=== PATIENT | female | born 1960 | race Caucasian/White ===

== ENCOUNTER 2018-01-11 05:13 | Observation (INO) | payer BC ==
[2018-01-11 09:43] LABS: Basophils # (A) 0.1 k/uL (0-0.2); Basophils % (A) 1 %; Eosinophils # (A) 0.4 k/uL (0-0.7); Eosinophils % (A) 5 %; HCT 34.8 % (34.0-46.0); HGB 11.4 gm/dL (11.4-16.0); Lymphocytes % (A) 30 %; MCH 28.8 pg (25.0-35.0); MCHC 32.9 g/dL (31.0-37.0); MCV 87.4 fL (80.0-100.0); Monocytes # (A) 0.4 k/uL (0-1.0); Monocytes % (A) 6 %; Neutrophils # (A) 3.7 k/uL (1.3-7.7); Neutrophils % (A) 56 %; Platelet Count 156 k/uL (150-450); RBC 3.98 m/uL (3.80-5.40); RDW 13.8 % (11.5-15.5); WBC 6.7 k/uL (3.8-10.6)
[2018-01-11 10:07] LABS: Calcium 9.2 mg/dL (8.4-10.2)
--- NOTE | 2018-01-11 11:47 | ECHOF ---
Referral Reason:Chest Pain MEASUREMENTS -------- HEIGHT: 172.7 cm WEIGHT: 164.7 kg BP: 119/69 RVIDd: 3.4 cm (< 3.3) IVSd: 1.1 cm (0.6 - 1.1) LVIDd: 5.1 cm (3.9 - 5.3) LVPWd: 1.1 cm (0.6 - 1.1) IVSs: 1.4 cm LVIDs: 2.8 cm LVPWs: 1.5 cm LAESV Index (A-L): 12.96 ml/m Ao Diam: 3.1 cm (2.0 - 3.7) AV Cusp: 2.3 cm (1.5 - 2.6) LA Diam: 3.5 cm (2.7 - 3.8) MV E Angel: 0.92 m/s MV DecT: 285 ms MV A Angel: 1.11 m/s MV E/A Ratio: 0.83 RAP: 5.00 mmHg RVSP: 33.67 mmHg FINDINGS -------- Sinus rhythm. This was a technically difficult study with suboptimal views. The left ventricular size is normal. There is borderline concentric left ventricular hypertrophy. Overall left ventricular systolic function is normal with, an EF between 55 - 60 %. The right ventricle is mildly enlarged. Normal LA size by volume 22+/-6 ml/m2. The right atrium is normal in size. 3 ml of Lumason was utilized for enhancement of images. There is mild aortic valve sclerosis. There is no evidence of aortic regurgitation. There is no e vidence of aortic stenosis. The mitral valve leaflets are mildly thickened. Mild mitral regurgitation is present. Trace tricuspid regurgitation present. The right ventricular systolic pressure, as measured by Dopp ler, is 33.67mmHg. Trace/mild (physiologic) pulmonic regurgitation. The aortic root size is normal. IVC Not well visulized. There is no pericardial effusion. CONCLUSIONS -------- 1. Sinus rhythm. 2. This was a technically difficult study with suboptimal views. 3. The left ventricular size is normal. 4. There is borderline concentric left ventricular hypertrophy. 5. Overall left ventricular systolic function is normal with, an EF between 55 - 60 %. 6. The right ventricle is mildly enlarged. 7. Normal LA size by volume 22+/-6 ml/m2. 8. 3 ml of Lumason was utilized for enhancement of images. 9. There is mild aortic valve sclerosis. 10. The mitral valve leaflets are mildly thickened. 11. Mild mitral regurgitation is present. 12. Trace tricuspid regurgitation present. 13. The right ventricular systolic pressure, as measured by Doppler, is 33.67mmHg. 14. Trace/mild (physiologic) pulmonic regurgitation. 15. The aortic root size is normal. 16. IVC Not well visulized. 17. There is no pericardial effusion. DRY WALL SPRAYER: Mike Cornelius RDCS
--- NOTE | 2018-01-11 14:20 | P.HPIM ---
History of Present Illness Patient is a pleasant a 57-year-old female morbidly obese history of sleep apnea woke up from sleep having chest pain in the whole lites left side of the chest burning in nature severe, nonexertional not associated with food not associated with the deep breathing lasted for 2 hours, was seen in [place] [facility] had an EKG which was normal without any ST-T wave changes sinus rhythm normal troponin subsequently transferred here cardiology was consulted patient will undergo stress us tomorrow if that is negative patient discharged tomorrow patient denied any cough was complaining of some lightheadedness denied any nausea associated chest pain. No other aggravating or relieving factors. Review of Systems REVIEW OF SYSTEMS: CONSTITUTIONAL: No fever, no malaise, no fatigue. HEENT: No recent visual problems or hearing problems. Denied any sore throat. CARDIOVASCULAR: No orthopnea, PND, no palpitations, no syncope. PULMONARY: No shortness of breath, no cough, no hemoptysis. GASTROINTESTINAL: No diarrhea, no nausea, no vomiting, no abdominal pain. Normoactive bowel sounds. NEUROLOGICAL: No headaches, no weakness, no numbness. HEMATOLOGICAL: Denies any bleeding or petechiae. GENITOURINARY: Denies any burning micturition, frequency, or urgency. MUSCULOSKELETAL/RHEUMATOLOGICAL: Denies any joint pain, swelling, or any muscle pain. ENDOCRINE: Denies any polyuria or polydipsia. The rest of the 14-point review of systems is negative. Past Medical History Past Medical History: Heart Failure, Diabetes Mellitus Additional Past Medical History / Comment(s): Pt states she is not hypertensive nor does she have elevated lipids-she takes meds for these as a preventative d/ t hx of diabetes. 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 History of Any Multi-Drug Resistant Organisms: None Reported Past Surgical History: Cholecystectomy, Hysterectomy, Orthopedic Surgery Additional Past Surgical History / Comment(s): Bilateral varicose vein surgeries , LR ankle and knee arthroscopies. Past Anesthesia/Blood Transfusion Reactions: No Reported Reaction Smoking Status: Former smoker - Past Family History Mother Family Medical History: Cancer, COPD Additional Family Medical History / Comment(s): Mother is 87yrs old and is a lung cancer stage IV survivor. Father Family Medical History: CVA/TIA, Hypertension Additional Family Medical History / Comment(s): Father had a pacemaker. He at the age of 70yrs-pt unsure of what cause of was. Medications and Allergies Home Medications Medication Instructions Recorded Confirmed Type Atorvastatin [Lipitor] 40 mg PO HS 01/11/18 01/11/18 History Bumetanide [Bumex] 1 mg PO DAILY 01/11/18 01/11/18 History Celecoxib [CeleBREX] 100 mg PO BID 01/11/18 01/11/18 History Furosemide [Lasix] 40 mg PO DAILY 01/11/18 01/11/18 History Gabapentin 600 mg PO BID 01/11/18 01/11/18 History Lisinopril-Hctz 20-12.5 mg 1 tab PO BID 01/11/18 01/11/18 History [Zestoretic 20-12.5] Potassium Chloride ER [K-Dur 10] 10 meq PO DAILY 01/11/18 01/11/18 History glipiZIDE [Glucotrol] 10 mg PO Q12H 01/11/18 01/11/18 History metFORMIN HCL [metFORMIN HCL ER] 1,000 mg PO BID 01/11/18 01/11/18 History oxyCODONE HCL [Roxicodone] 5 mg PO HS PRN 01/11/18 01/11/18 History Allergies Allergy/AdvReac Type Severity Reaction Status Date / Time codeine AdvReac Confusion Verified 01/11/18 09:40 Physical Exam Vitals: Vital Signs Temp Pulse Resp BP Pulse Ox 01/11/18 11:51 98.9 F 83 16 132/75 100 01/11/18 08:12 98.3 F 79 16 119/69 99 Intake and Output 01/10/18 01/11/18 01/11/18 22:59 06:59 14:59 Intake Total 200 Balance 200 Intake: Oral 200 Other: # Voids 2 Weight 164.7 kg PHYSICAL EXAMINATION: GENERAL: The patient is alert and oriented x3, not in any acute distress. Morbidly obese HEENT: Pupils are round and equally reacting to light. EOMI. No scleral icterus. No conjunctival pallor. Normocephalic, atraumatic. No pharyngeal erythema. No thyromegaly. CARDIOVASCULAR: S1 and S2 present. No murmurs, rubs, or gallops. PULMONARY: Chest is clear to auscultation, no wheezing or crackles. ABDOMEN: Soft, nontender, nondistended, normoactive bowel sounds. No palpable organomegaly. MUSCULOSKELETAL: No joint swelling or deformity. EXTREMITIES: No cyanosis, clubbing, or pedal edema. NEUROLOGICAL: Gross neurological examination did not reveal any focal deficits. SKIN: No rashes. Results CBC & Chem 7: 01/11/18 09:03 01/11/18 09:03 Labs: Abnormal Lab Results - Last 24 Hours (Table) 01/11/18 Range/Units 09:03 Sodium 136 L (137-145) mmol/L Chloride 97 L (98-107) mmol/L BUN 36 H (7-17) mg/dL Glucose 134 H (74-99) mg/dL Thrombosis Risk Factor Assmnt - Choose All That Apply Any of the Below Risk Factors Present?: Yes Each Factor Represents 1 point: Age 41-60 years, Obesity (BMI >25) Other Risk Factors: No Other congenital or acquired thrombophilia - If yes, enter type in comment: No Thrombosis Risk Factor Assessment Total Risk Factor Score: 2 Thrombosis Risk Factor Assessment Level: Low Risk Assessment and Plan Plan: -Chest pain: Atypical on sugars of the exact etiology May be musculoskeletal in nature rule out acute coronary syndromes after which patient will undergo stress test if that's negative patient will be discharged tomorrow. Although patient was told she may have heart failure clinically patient does not appear to have any heart failure [facility] is not nursery and this will be held patient has history of some peripheral edema probably from her obesity and venous stasis -Hypertension: Lisinopril hydrochlorothiazide will be resumed next and-that was metastatic diabetic peripheral neuropathy patient will be resumed on her home medications except for metformin patient will be started on sliding scale insulin and monitor her blood sugars -Diabetic peripheral neuropathy continue gabapentin T -Hyperlipidemia continue with Lipitor -Morbid obesity with sleep apnea continue CPAP machine which she does use regularly at home dietary counseling was provided
--- NOTE | 2018-01-11 15:50 | P.CRDCN ---
History of Present Illness History of present illness: Mrs. Cummings is a pleasant 57-year-old female past medical history significant for hypertension, dyslipidemia, diabetes mellitus and morbid obesity. She states her PCP recently took an echo approximately 1-year ago and told her she had the beginning stages of heart failure. She denies coronary artery disease and has never seen a cookie mixer helper for any reason. We have been asked to see her in consultation for chest pain. She states she woke up in the middle of the night with a heavy sensation in the left precoridal region. She attempted to go back to sleep but was unable to due to the pain. The pain then started moving down her left arm which prompted her to go to ED. she denies associated shortness of breath, dizziness, palpitations, nausea, vomiting or diaphoresis. She also denies PND or orthopnea. Her pain lasted approximately 2.5 hours until she arrived in ED and was given aspirin. EKG on admission to [place] revealed sinus mechanism with no acute ST or T-wave abnormalities. Chest xray obtained there negative for an acute cardiopulmonary process. She was then transferred here for further evaluation. Upon arrival repeat EKG again showed normal sinus mechanism with no acute ST or T-wave abnormalities. Echocardiogram obtained reveals preserved left ventricular systolic function with ejection fraction 55-60%, concentric left ventricular hypertrophy with mild MR. Laboratory data reviewed, hemoglobin 11.4, platelets 156, sodium 136, potassium 4.0, creatinine 1.0, NT proBNP 36 and cardiac enzymes negative 1. Current home medications include Bumex 1 mg daily, Lasix 40 mg daily, lisinopril /HCTZ 20/12.5 mg twice a day, potassium supplementation, glipizide, metformin, oxycodone, gabapentin and Celebrex. Review of Systems At the time of my exam: CONSTITUTIONAL: Denies fever. Denies chills. EYES: Denies blurred vision. Denies vision changes. Denies eye pain. EARS, NOSE, MOUTH & THROAT: Denies headache. Denies sore throat. Denies ear pain. CARDIOVASCULAR: Denies chest pain. Denies shortness of breath. Denies orthopnea. Denies PND. Denies palpitations. RESPIRATORY: Denies cough. GASTROINTESTINAL: Denies abdominal pain. Denies diarrhea. Denies constipation. Denies nausea. Denies vomiting. MUSCULOSKELETAL: Denies myalgias. INTEGUMENTARY: Denies pruitis. Denies rash. NEUROLOGIC: Denies numbness. Denies tingling. Denies weakness. PSYCHIATRIC: Denies anxiety. Denies depression. ENDOCRINE: Denies fatigue. Denies weight change. Denies polydipsia. Denies polyurina. GENITOURINARY: Denies burning, hematuria or urgency with micturation. HEMATOLOGIC: Denies history of anemia. Denies bleeding. Past Medical History Past Medical History: Heart Failure, Diabetes Mellitus Additional Past Medical History / Comment(s): Pt states she is not hypertensive nor does she have elevated lipids-she takes meds for these as a preventative d/ t hx of diabetes. 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 History of Any Multi-Drug Resistant Organisms: None Reported Past Surgical History: Cholecystectomy, Hysterectomy, Orthopedic Surgery Additional Past Surgical History / Comment(s): Bilateral varicose vein surgeries , LR ankle and knee arthroscopies. Past Anesthesia/Blood Transfusion Reactions: No Reported Reaction Smoking Status: Former smoker - Past Family History Mother Family Medical History: Cancer, COPD Additional Family Medical History / Comment(s): Mother is 87yrs old and is a lung cancer stage IV survivor. Father Family Medical History: CVA/TIA, Hypertension Additional Family Medical History / Comment(s): Father had a pacemaker. He at the age of 70yrs-pt unsure of what cause of was. Medications and Allergies Home Medications Medication Instructions Recorded Confirmed Type Atorvastatin [Lipitor] 40 mg PO HS 01/11/18 01/11/18 History Bumetanide [Bumex] 1 mg PO DAILY 01/11/18 01/11/18 History Celecoxib [CeleBREX] 100 mg PO BID 01/11/18 01/11/18 History Furosemide [Lasix] 40 mg PO DAILY 01/11/18 01/11/18 History Gabapentin 600 mg PO BID 01/11/18 01/11/18 History Lisinopril-Hctz 20-12.5 mg 1 tab PO BID 01/11/18 01/11/18 History [Zestoretic 20-12.5] Potassium Chloride ER [K-Dur 10] 10 meq PO DAILY 01/11/18 01/11/18 History glipiZIDE [Glucotrol] 10 mg PO Q12H 01/11/18 01/11/18 History metFORMIN HCL [metFORMIN HCL ER] 1,000 mg PO BID 01/11/18 01/11/18 History oxyCODONE HCL [Roxicodone] 5 mg PO HS PRN 01/11/18 01/11/18 History Allergies Allergy/AdvReac Type Severity Reaction Status Date / Time codeine AdvReac Confusion Verified 01/11/18 09:40 Physical Exam Vitals: Vital Signs Temp Pulse Resp BP Pulse Ox 01/11/18 11:51 98.9 F 83 16 132/75 100 01/11/18 08:12 98.3 F 79 16 119/69 99 Intake and Output 01/11/18 01/11/18 01/11/18 06:59 14:59 22:59 Intake Total 200 Balance 200 Intake: Oral 200 Other: # Voids 2 Weight 164.7 kg Blood pressure 119/72 heart rate 80 afebrile maintaining oxygen saturation on 2 L nasal cannula GENERAL: This is a 57-year-old occasion female in no apparent distress at the time of my examination. Morbidly obese. HEENT: Head is atraumatic, normocephalic. Pupils are equal, round. Sclerae anicteric. Conjunctivae are clear. Mucous membranes of the mouth are moist. Neck is supple. There is no jugular venous distention. No carotid bruit is heard. LUNGS: Clear to auscultation no wheezes, rales or rhonchi. No chest wall tenderness is noted on palpation or with deep breathing. Diminished bilaterally. HEART: Regular rate and rhythm without murmurs, rubs or gallops. S1 and S2 heard. ABDOMEN: Soft, nontender. Bowel sounds are heard. No organomegaly noted. EXTREMITIES: Trace bilateral lower extremity edema and no calf tenderness noted. VASCULAR: Radial and dorsalis pedis pulses palpated, no evidence of clubbing. NEUROLOGIC: Patient is awake, alert and oriented x3. Results 01/11/18 09:03 01/11/18 09:03 Cardiac Enzymes 01/11/18 Range/Units 09:03 Troponin I <0.012 (0.000-0.034) ng/mL CBC 01/11/18 Range/Units 09:03 WBC 6.7 (3.8-10.6) k/uL RBC 3.98 (3.80-5.40) m/uL Hgb 11.4 (11.4-16.0) gm/dL Hct 34.8 (34.0-46.0) % Plt Count 156 (150-450) k/uL Comprehensive Metabolic Panel 01/11/18 Range/Units 09:03 Sodium 136 L (137-145) mmol/L Potassium 4.0 (3.5-5.1) mmol/L Chloride 97 L (98-107) mmol/L Carbon Dioxide 28 (22-30) mmol/L BUN 36 H (7-17) mg/dL Creatinine 1.00 (0.52-1.04) mg/dL Glucose 134 H (74-99) mg/dL Calcium 9.2 (8.4-10.2) mg/dL Current Medications Generic Name Dose Route Start Last Admin Trade Name Freq PRN Reason Stop Dose Admin Atorvastatin Calcium 40 mg 01/11/18 21:00 Lipitor PO HS JONN Gabapentin 600 mg 01/11/18 21:00 Neurontin PO BID JONN Glipizide 10 mg 01/11/18 13:45 Glucotrol PO Q12HR JONN Lisinopril/HCTZ 1 each 01/11/18 21:00 Zestoretic 20-12.5 PO BID JONN Intake and Output 01/11/18 01/11/18 01/11/18 06:59 14:59 22:59 Intake Total 200 Balance 200 Intake: Oral 200 Other: # Voids 2 Weight 164.7 kg Patient Weight 01/12/18 06:59 Weight 164.7 kg 01/11/18 09:03 01/11/18 09:03 Assessment and Plan Assessment: ASSESSMENT Chest pain at rest, atypical. Hypertension Dyslipidemia Diabetes mellitus Morbid obesity, BMI 55.2 PLAN There is no evidence of heart failure. Echo is normal, normal NTproBNP, normal chest xray and no symptoms suggestive of heart failure. Continue to obtain serial cardiac enzymes to rule out an acute event. If enzymes are normal we will schedule her for a dobutamine stress echocardiogram tomorrow morning. Resume atorvastatin 40 mg daily and zestoretic 20/12.5 mg BID. Further recommendations to follow based on clinical course. Thank you kindly for this consultation. Nurse Practitioner note has been reviewed, I agree with a documented findings and plan of care. Patient was seen and examined.
[2018-01-11 17:17] LABS: Glucose,Whole Blood 102 mg/dL (75-99)
[2018-01-11 17:57] LABS: Creatine Kinase MB 1.7 ng/mL (0.0-2.4); Troponin I <0.012 ng/mL (0.000-0.034)
[2018-01-11] MEDS: glipiZIDE 10 MG TAB PO SCH ×2 (18:54→20:03)
[2018-01-11] MEDS ORDERED: ACETAMINOPHEN TAB 325 MG TAB PO PRN (19:59)
[2018-01-11] MEDS: LISINOPRIL-HCTZ 20-12.5 MG 1 EACH TAB PO SCH (20:03)
[2018-01-11] MEDS: GABAPENTIN 300 MG CAP PO SCH (20:03)
[2018-01-11 20:24] LABS: Glucose,Whole Blood 168 mg/dL (75-99)
[2018-01-11] MEDS ORDERED: ATORVASTATIN 40 MG TAB PO SCH (21:00)
[2018-01-12 06:49] LABS: Glucose,Whole Blood 164 mg/dL (75-99)
[2018-01-12] MEDS ORDERED: DOBUTamine DRIP for NUC MED 500 MG in DEXTROSE/WATER 1 250ML.BAG IV ONE (07:11)
--- NOTE | 2018-01-12 07:35 | PN ---
PROGRESS NOTE Mrs. Cummings is a 57-year-old female with known history of hypertension, diabetes, hyperlipidemia, who presented with symptoms of chest discomfort. She is feeling well this morning. She denies any chest pain. Her breathing has been stable. She denies any dizziness or palpitation. She continues to be at this time on Lipitor 40 mg daily, glipizide, lisinopril. PHYSICAL EXAMINATION: Blood pressure 100/59 with the heart rate in the 80s. LUNGS: Clear. HEART: Regular rate and rhythm, S1, S2. No S3. No rub. ABDOMEN: Soft, nontender. Positive bowel sounds. EXTREMITIES: No edema. LAB DATA: Lab data revealed a troponin less than 0.012, NT proBNP of 36. IMPRESSION: 1. Chest discomfort has atypical features for ischemic heart disease. 2. History of hypertension. 3. Hyperlipidemia. 4. Diabetes mellitus. RECOMMENDATION: I would recommend to proceed with a dobutamine stress echocardiogram to evaluate the etiology of her symptoms and guide her treatment. The rationale behind the procedure its risks and as well as the plan were discussed with the patient who is in full understanding and agreement. MMODL / IJN: [id number] /
[2018-01-12] MEDS ORDERED: ASPIRIN 81 MG PO SCH (09:00)
[2018-01-12] MEDS: GABAPENTIN 300 MG CAP PO SCH (12:18)
[2018-01-12 12:20] LABS: Glucose,Whole Blood 124 mg/dL (75-99)
--- NOTE | 2018-01-12 14:11 | ECHOS ---
STRESS ECHOCARDIOGRAM DATE OF SERVICE: 01/12/2018 INDICATIONS: Chest pain, shortness of breath. MEDICATIONS: BASELINE HEART RATE: 78 BASELINE BLOOD PRESSURE: 162/63 MAXIMUM HEART RATE: 140 MAXIMUM BLOOD PRESSURE: 216/104 85% MPHR: 137 100% MPHR: 161 METS: MAXIMUM STAGE REACHED: TOTAL EXERCISE TIME: CLINICAL INFORMATION: Baseline rhythm is sinus mechanism, rate of 78, normal axis and intervals, minor nonspecific ST-T wave changes. Baseline blood pressure 162/63 mmHg. Patient received an infusion of dobutamine per protocol. Peak rate 140 beats per minute, which is equal to 87% maximum predicted heart rate. Peak blood pressure 216/104 mmHg. Electrocardiograph monitoring revealed no evidence of diagnostic ischemic ST deviation. Baseline echocardiogram revealed normal wall thickening and motion. At peak exercise, there was normal wall motion augmentation with no hypokinesis or dyskinesis. CONCLUSION: 1. Normal electrocardiograph response to dobutamine infusion. 2. Normal stress echocardiogram with no evidence of stress induced ischemia. MMODL / IJN: [id number] /
[2018-01-12] MEDS: LISINOPRIL-HCTZ 20-12.5 MG 1 EACH TAB PO SCH (14:26)
[2018-01-12] MEDS: glipiZIDE 10 MG TAB PO SCH (14:30)
[2018-01-12 15:46] VITALS: BP 123/74; PULSE 84; RESP 18; TEMP 98.5
[2018-01-12 17:31] LABS: Glucose,Whole Blood 120 mg/dL (75-99)
--- NOTE | 2018-01-13 00:29 | DS ---
DISCHARGE SUMMARY FINAL DIAGNOSES: 1. Chest pain possibly musculoskeletal with negative for dobutamine stress echo. 2. Hypertension. 3. Diabetic neuropathy. 4. Hyperlipidemia. 5. Morbid obesity. DISCHARGE DISPOSITION: The patient is being discharged in stable condition with guarded prognosis. HOSPITAL COURSE: This 57-year-old woman with a past medical problems, admitted with chest pain, myocardial infarction ruled out. Cardiology saw the patient and recommend dobutamine stress echo which is normal. Otherwise, the patient improved significantly. On exam, vital signs are stable. Cardiovascular S1, S2. Abdomen soft. Nervous system: No focal deficits. DISCHARGE ADVICE AND MEDICATIONS: 1. Discharge diet is cardiac diet. 2. Activity limited until follow up. 3. Followup with the patient's primary physician in [place] in 2-3 days. 4. Follow up with cardiology as recommended. MEDICATIONS: 1. Lipitor 40 mg q.h.s. 2. Celebrex 100 mg p.o. b.i.d. 3. Lasix 40 mg daily. 4. Gabapentin 600 mg p.o. b.i.d. 5. Glipizide 10 mg every 24 hours. 6. Metformin 1000 mg b.i.d. 7. Oxycodone 5 mg q.h.s. 8. K-Dur 10 mEq p.o. daily. MMODL / IJN: [id number] /
== END 2018-01-12 18:24 | disposition home or self-care (01) ==
LOC: 3OBS 07:41
PROVIDERS: ADMIT Internal Medicine; ATTEND Internal Medicine
DX: R07.89 Other chest pain (principal); I11.0 Hypertensive heart disease with heart failure; I50.9 Heart failure, unspecified; E11.42 Type 2 diabetes mellitus with diabetic polyneuropathy; E78.5 Hyperlipidemia, unspecified; G47.30 Sleep apnea, unspecified; Z99.89 Dependence on other enabling machines and devices; G89.29 Other chronic pain; M25.50 Pain in unspecified joint; R42 Dizziness and giddiness; E66.01 Morbid (severe) obesity due to excess calories; Z68.43 Body mass index [BMI] 50.0-59.9, adult; Z79.84 Long term (current) use of oral hypoglycemic drugs; Z79.899 Other long term (current) drug therapy; Z88.5 Allergy status to narcotic agent; Z90.49 Acquired absence of other specified parts of digestive tract; Z90.710 Acquired absence of both cervix and uterus; Z87.891 Personal history of nicotine dependence; Z80.1 Family history of malignant neoplasm of trachea, bronchus and lung; Z82.3 Family history of stroke; Z82.5 Family history of asthma and other chronic lower respiratory diseases; Z82.49 Family history of ischemic heart disease and other diseases of the circulatory system
CPT/HCPCS: 93306; 93351; 85379; 83880; 80048; 82553; 84484; 85025; G0378 ×2; G0379; J1250; Q9950 ×2

== ENCOUNTER → 2019-04-23 | Outpatient (CLI) | payer OTHER | END | disposition home or self-care (01) | LOC: LABPAT 14:41 | PROVIDERS: ATTEND Orthopaedic Surgery | DX: Z01.812 Encounter for preprocedural laboratory examination (principal) | CPT/HCPCS: 87070 ==

== ENCOUNTER → 2019-09-18 | Outpatient (CLI) | payer OTHER ==
[2019-09-18 11:30] LABS: Appearance,Urine Clear (Clear); Bilirubin,Urine Negative (Negative); Blood,Urine Negative (Negative); Color,Urine Light Yellow; Glucose,Urine (UA) Negative (Negative); Ketones,Urine Negative (Negative); Leukocyte Esterase,Urine Negative (Negative); Nitrite,Urine Negative (Negative); PH, Urine 5.5 (5.0-8.0); Protein,Urine Negative (Negative); Specific Gravity,Urine 1.011 (1.001-1.035); Urobilinogen,Urine <2.0 mg/dL (<2.0)
[2019-09-18 11:32] LABS: HGB 12.8 gm/dL (11.4-16.0); MCH 28.6 pg (25.0-35.0); MCHC 31.2 g/dL (31.0-37.0); MCV 91.7 fL (80.0-100.0); Mean Platelet Volume 8.4; Platelet Count 234 k/uL (150-450); RBC 4.47 m/uL (3.80-5.40); WBC 8.1 k/uL (3.8-10.6)
[2019-09-18 11:45] LABS: Prothrombin Time 10.6 sec (9.0-12.0)
[2019-09-18 11:47] LABS: ALT 38 U/L (4-34); AST 38 U/L (14-36); African American GFR (CKD) >90 (>60 ml/min/1.73 sqM); Albumin 4.6 g/dL (3.5-5.0); Alkaline Phosphatase 119 U/L (38-126); Anion Gap 11 mmol/L; Blood Urea Nitrogen 22 mg/dL (7-17); Calcium 9.9 mg/dL (8.4-10.2); Carbon Dioxide 22 mmol/L (22-30); Chloride 101 mmol/L (98-107); Glucose 93 mg/dL (74-99); Non-African American GFR(CKD) 78 (>60 ml/min/1.73 sqM); Potassium 4.8 mmol/L (3.5-5.1); Sodium 134 mmol/L (137-145); Total Bilirubin 0.6 mg/dL (0.2-1.3); Total Protein 7.5 g/dL (6.3-8.2)
== END | disposition home or self-care (01) ==
LOC: LABPAT 10:25
PROVIDERS: ATTEND Orthopaedic Surgery
DX: Z01.818 Encounter for other preprocedural examination (principal); Z01.812 Encounter for preprocedural laboratory examination
CPT/HCPCS: 36415; 80053; 81003; 85027; 85610; 85730; 87070

== ENCOUNTER 2019-09-24 07:43 | Day surgery (SDC) | payer OTHER ==
[2019-09-20 15:30] VITALS: BMI 56.1
[~2019-09-24 07:43] MED LIST: ACETAMINOPHEN TAB 500 MG TAB PO ONE; BISACODYL 10 MG SUPP RECTAL PRN; DEXAMETHASONE SOD PHOSPHATE 10 MG/ML 1 ML VIAL IV ONE; DIAZEPAM 5 MG TAB PO PRN; GABAPENTIN 300 MG CAP PO ONE; HYDROcodone/APAP 5-325MG 1 EACH TAB PO PRN; HYDROmorphone 0.5 MG/0.5 ML SYRINGE IVP PRN; HYDROmorphone 1 MG/ML 1 ML SYRINGE IVP PRN; LIDOCAINE 1% (10MG/ML) FOR IV START INTRADERMA PRN; MAGNESIUM HYDROXIDE 2,400 MG/10 ML CUP PO PRN; MELOXICAM 7.5 MG TAB PO ONE; NA PHOS,M-B/NA PHOS,DI-BA 133 ML ENEMA RECTAL PRN; NALOXONE 0.4 MG/ML 1 ML VIAL IV PRN; ONDANSETRON 4 MG/2 ML VIAL IVP ONE; ONDANSETRON 4 MG/2 ML VIAL IVP PRN; ROPIVACAINE 246.25 MG, EPINEPHrine 0.5 MG, KETOROLAC 30 MG, cloNIDine HCL/PF 80 MCG, WA... MISCELLANE ONE; SCOPOLAMINE 1.5MG/72HR PATCH TRANSDERM ONE; TRANEXAMIC ACID 1,000 MG in SODIUM CHLORIDE 0.9% 100 ML IVPB ONE; ceFAZolin 3 GM in SODIUM CHLORIDE 0.9% 100 ML IVPB ONE; hydrOXYzine PAMOATE 25 MG CAP PO PRN
[2019-09-24] MEDS: LACTATED RINGERS 1,000 ML IV SCH (08:25)
[2019-09-24 08:28] LABS: Glucose,Whole Blood 127 mg/dL (75-99)
[2019-09-24] MEDS ORDERED: MIDAZOLAM 2 MG/2 ML VIAL IVP ONE (08:30)
[2019-09-24] MEDS ORDERED: TRANEXAMIC ACID 1,000 MG/10 ML VIAL ONE (09:08)
[2019-09-24] MEDS ORDERED: ROPIVACAINE 0.2%-NS ON-Q PUMP 1,090 MG, EMPTY PAIN BALL 1 EACH MISCELLANE PRN (09:08)
[2019-09-24] MEDS ORDERED: SODIUM CHLORIDE 0.9% 100 ML BAG ONE (09:08)
[2019-09-24] MEDS ORDERED: MIDAZOLAM 2 MG/2 ML VIAL ONE (09:08)
[2019-09-24] MEDS ORDERED: PROPOFOL 10 MG/ML 20 ML VIAL IV ONE (09:08)
[2019-09-24] MEDS ORDERED: ROCURONIUM BROMIDE 10 MG/ML 5 ML VIAL IV ONE (09:08)
[2019-09-24] MEDS ORDERED: fentaNYL (PF) 50 MCG/ML 2 ML AMP ONE (09:08)
[2019-09-24] MEDS ORDERED: SUCCINYLCHOLINE CHLORIDE 100 MG/5 ML SYR IV ONE (09:08)
[2019-09-24] MEDS ORDERED: HYDROmorphone (PF) 1 MG/ML ONE (09:08)
--- NOTE | 2019-09-24 09:08 | P.ANPRN ---
Procedure Note - Anesthesia - Nerve Block Performed Right Adductor Canal Infusion Time Out Performed: Yes Date of Procedure: 09/24/19 Procedure Start Time: : Procedure Stop Time: :40 Location of Patient: PreOp Indication: Acute Post-Operative Pain, Requested by Surgeon Sedation Type: Sedate with meaningful contact maintained Preparation: Sterile Prep, Sterile Dressing Position: Supine Catheter: Indwelling Needle Types: Pajunk Needle Gauge: 21 Ultrasound used to visualize needle placement: Yes Ultrasound used to observe medication spread: Yes Blood Aspirated: No Pain Paresthesia on Injection Noted: No Resistance on Injection: Normal Image Stored and Saved: Yes Events: Uneventful and Well Tolerated (Ropivacaine 0.5% 20 mls)
[2019-09-24] MEDS ORDERED: ceFAZolin 3,000 MG in SODIUM CHLORIDE 0.9% IRRIGATIO 3,000 ML IRRIGATION ONE (09:11)
[2019-09-24] MEDS ORDERED: LACTATED RINGERS 1,000 ML IV ONE (10:15)
--- NOTE | 2019-09-24 10:59 | P.OP ---
Date of Procedure: 09/24/19 Preoperative Diagnosis: Severe osteoarthritis right knee Postoperative Diagnosis: Severe osteoarthritis right knee Procedure(s) Performed: Right total knee arthroplasty Implants: Garza [employer] Nephew Journey II CR Oxinium cruciate retaining femoral component size 6, right [employer] Journey right nonporous tibial baseplate size 5 Gar[employer] Journey II, XLPE Deep Dished articular insert, size 11 mm, Size 5-6 right [employer] Journey BCS resurfacing oval patellar component, 32 mm All components were cemented using Palacos R bone cement.. The articulation is Oxinium on polyethylene. Anesthesia: GETA Surgeon: Zan Whatley Garbage [employer]ot Worker #1: Erica Mittal Estimated Blood Loss (ml): 50 Pathology: other (Bone and cartilage) Condition: stable Disposition: PACU Indications for Procedure: After failure of conservative treatment we discussed the surgical and nonsurgical treatment options at length. Patient wishes to proceed with a total knee arthroplasty. Complications specific to this procedure were discussed at length, including but not limited to infection, bleeding, stiffness, and nerve injury. Covid-19 was also discussed at length with the patient, and they are aware of the current policies and procedures. The patient was given the option of delaying surgery, but they elect to proceed knowing these risks. Patient is aware of all these complications and informed consent was obtained Operative Findings: The operative findings are consistent with severe osteoarthritis of the right knee Description of Procedure: Patient was seen in the preoperative area consent was reviewed and operative site was marked with a skin marker. An adductor canal pain catheter was placed by anesthesia in the preoperative area. Patient was then brought to the operating room and given preoperative antibiotics intravenously. A general anesthetic was administered by the anesthesia department. A tourniquet was placed on the upper thigh and the lower extremity was prepped and draped in usual sterile fashion. A gram of transexamic acid was given. A universal timeout was then performed which confirmed the patient's name, surgical site, ALLERGIES, and consent. The lower extremity was then exsanguinated and tourniquet was inflated to 250 mmHg. A standard and anterior midline approach to the knee was performed. The skin and subcutaneous tissue was dissected down to the patellar tendon. A medial parapatellar arthrotomy was then performed. The knee was then extended, the patellar was everted, and the knee was again flexed. The patellar fat pad was removed in order to enhance exposure. Anterior horns of both menisci were excised, and a release was performed to the posterior medial aspect of the knee. On gross visual inspection, there was complete loss of articular cartilage in the medial and patellofemoral joint spaces. There was also significant cartilage damage in the lateral compartment. There were multiple periarticular osteophytes which were then removed with a Ronguer. The femoral canal was then opened with the 9.5 mm intramedullary drill. The 8 mm intramedullary abram was then inserted into the femoral canal. The distal femoral cutting guide was then placed and set for 5 of valgus. The distal femoral cutting block was then pinned in place. The intramedullary abram was then removed, and the distal femur was then cut. The cutting block was then removed and the cut was checked for symmetry. Next, the sizing guide was then placed and set for 3 external rotation based off of the epicondylar axis and Whitesides line. Pins were then placed and the drill holes, and the femur was sized with the sizing stylus. The pins were then removed, and the sizing guide was then removed. The spikes of the femoral block was then placed into the predrilled holes, and malleted into place. Two 45 mm pins were then placed into the fixation holes on the cutting block. An terrell wing was then used to ensure there would be no notching with the anterior cut. The anterior condyles were cut without notching. The anterior cord cut was then performed, followed by the posterior cut, posterior chamfer cut, and the anterior chamfer cut. The collateral ligaments were protected during the entire process. The cutting block was then removed, and the femoral canal was plugged with autologous bone. Attention was then directed to the tibia. The remaining ACL was removed with a Ronguer, and the tibia was then gently subluxed forward with a large bent knee retractor. Any remaining menisci was excised. The posterior lateral corner was cauterized in order to cauterize the lateral geniculate artery. The extra medullary tibial cutting guide was then placed, set for the appropriate rotation, slope, and depth of resection. The proximal tibia cutting guide was then pinned in place. Proximal tibia was then cut and sized. Next trials were then placed with the appropriate-sized insert. The knee was able to fully extend and flex to 130 and was stable throughout all range of motion. The knee was then extended, patella everted. Patella was then measured, and then using an osteotomy guide, the patella was cut at the appropriate level. The patella was then measured and drilled and the patella trial was then placed. The knee was then taken through range of motion with the patella trial and the patella tracked normally. The knee was then extended patella trial was then removed and the patella was everted. Knee was then flexed and lug holes were drilled through the femoral trial and the femoral trial was then removed. The tibial was then exposed, and the tibial broach guide was then pinned in place after it was set for the appropriate rotation to allow for the most coverage without overhang. The tibia was then reamed and broached. The cut surfaces of bone were then irrigated with pulsatile lavage. The posterior structures were injected with the ropivacaine solution. The knee was also irrigated with Irrisept solution. The components were then opened, the cement was mixed, and the components were then cemented in place. The cement was allowed to harden with the knee in full extension. While the cement was hardening, the remaining soft tissues were then injected with a ropivacaine solution, which consisted of 246.25 mg of ropivacaine, 0.5 mg of epinephrine, 30 mg of Toradol, 80 g of clonidine, and 48.45 mL of sterile water, for a total of 100 mL of fluid injected. After the cemented hardened. The tourniquet was released, and hemostasis was obtained. A second gram of transexamic acid was given. The knee was again irrigated. The knee was again taken through range of motion and found to be stable throughout all range of motion of 0-130, and the patella tracked normally. The fascia was then closed with #2 strata fix suture. The subcutaneous tissue was closed with 3-0 Vicryl and 3-0 strata fix. Dermabond glue was used for the skin and placed with the knee in flexion. The patient was placed in a sterile silver dressing. Patient was then transferred to recovery room in stable condition. The cafe assistant BLANCO Bhatti was required due the complexity surgery and the need for a skilled hand frame surgical elastic knitter. She assisted in positioning, draping, retraction, and closure of the wound.
[2019-09-24] MEDS: HYDROmorphone 0.5 MG/0.5 ML SYRINGE IVP PRN ×2 (11:55→12:10)
--- NOTE | 2019-09-24 12:06 | XR ---
EXAMINATION TYPE: XR knee limited RT DATE OF EXAM: 09/24/2019 CLINICAL HISTORY: Postoperative evaluation Two views of the right knee are submitted. Identified are changes of total knee arthroplasty with femoral and tibial components appearing well seated. Postsurgical soft tissue changes are noted. Alignment is anatomic.
[2019-09-24] MEDS ORDERED: KETOROLAC 30 MG/ML 1 ML VIAL IVP ONE (12:31)
[2019-09-24] MEDS ORDERED: traZODone HCL 50 MG TAB PO PRN (14:07)
--- NOTE | 2019-09-24 15:08 | P.CONS ---
History of Present Illness - Reason for Consult Hypotension - History of Present Illness Patient is 58-year-old pleasant female admitted for right Breast is excessive and when surgery. Patient denied any fever chills nausea vomiting abdominal pain dysuria patient doesn't have a Delatorre catheter patient pain is well- controlled patient blood pressures little low heart rate is bit higher Review of Systems REVIEW OF SYSTEMS: CONSTITUTIONAL: No fever, no malaise, no fatigue. HEENT: No recent visual problems or hearing problems. Denied any sore throat. CARDIOVASCULAR: No chest pain, orthopnea, PND, no palpitations, no syncope. PULMONARY: No shortness of breath, no cough, no hemoptysis. GASTROINTESTINAL: No diarrhea, no nausea, no vomiting, no abdominal pain. NEUROLOGICAL: No headaches, no weakness, no numbness. HEMATOLOGICAL: Denies any bleeding or petechiae. GENITOURINARY: Denies any burning micturition, frequency, or urgency. MUSCULOSKELETAL/RHEUMATOLOGICAL: Denies any joint pain, swelling, or any muscle pain. ENDOCRINE: Denies any polyuria or polydipsia. The rest of the 14-point review of systems is negative. Past Medical History Past Medical History: Heart Failure, Diabetes Mellitus, Fibromyalgia, Osteoarthr itis (OA), Rheumatoid Arthritis (RA), Sleep Apnea/CPAP/BIPAP Additional Past Medical History / Comment(s): Pt states is not hypertensive nor have elevated lipids-she takes Rx for preventative d/t DM. 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 No tx for sleep apnea. Varicose veins. History of Any Multi-Drug Resistant Organisms: None Reported Past Surgical History: Cholecystectomy, Hysterectomy, Joint Replacement, Orthopedic Surgery Additional Past Surgical History / Comment(s): Bilateral varicose vein surgeries, LR ankle and knee arthroscopies. Total Lt Knee 05/15/19 Past Anesthesia/Blood Transfusion Reactions: Previous Problems w/ Anesthesia Additional Past Anesthesia/Blood Transfusion Reaction / Comm: states has been hard to awake in past Smoking Status: Former smoker - Past Family History Mother Family Medical History: Cancer, COPD Additional Family Medical History / Comment(s): Mother had lung cancer stage IV Father Family Medical History: CVA/TIA, Hypertension Additional Family Medical History / Comment(s): Father had a pacemaker. He age 70yrs - unsure of cause of Medications and Allergies Home Medications Medication Instructions Recorded Confirmed Type Atorvastatin [Lipitor] 40 mg PO HS 01/11/18 09/24/19 History Furosemide [Lasix] 40 mg PO DAILY PRN 01/11/18 09/24/19 History Potassium Chloride ER [K-Dur 10] 10 meq PO HS 01/11/18 09/24/19 History metFORMIN HCL [metFORMIN HCL ER] 1,000 mg PO BID 01/11/18 09/24/19 History DULoxetine HCL [Cymbalta] 60 mg PO BID 05/08/19 09/24/19 History Diclofenac Sodium [Voltaren Gel] 1 applic TOPICAL DAILY PRN 05/08/19 09/24/19 History Fluticasone Nasal [place] [Flonase 2 spr EA NOSTRIL DAILY 05/08/19 09/24/19 History Nasal [place]] Folic Acid 1 mg PO DAILY 05/08/19 09/24/19 History Hydroxychloroquine Sulfate 200 mg PO BID 05/08/19 09/24/19 History [Plaquenil] Lisinopril-Hctz 20-12.5 mg 1 tab PO HS 05/08/19 09/24/19 History [Zestoretic 20-12.5] Methotrexate Sodium [Methotrexate] 10 mg PO MO 05/08/19 09/24/19 History Gabapentin 800 mg PO TID #3 tab 05/17/19 09/24/19 Rx Acetaminophen Tab [Tylenol] 650 mg PO Q6H PRN 09/20/19 09/24/19 History traZODone HCL 150 mg PO HS PRN 09/20/19 09/24/19 History Allergies Allergy/AdvReac Type Severity Reaction Status Date / Time Phenothiazines Allergy Rash/Hives Verified 09/24/19 07:59 Tetanus Vaccines and Toxoid Allergy Unknown Verified 09/24/19 07:59 codeine AdvReac Confusion Verified 09/24/19 07:59 Physical Exam Vitals: Vital Signs Temp Pulse Pulse Resp BP Pulse Ox 09/24/19 12:40 97 16 159/73 96 09/24/19 12:10 95 16 140/65 97 09/24/19 11:55 99 16 142/67 98 09/24/19 11:40 100 16 152/66 97 09/24/19 11:28 99 16 143/65 98 09/24/19 11:13 96.8 F L 106 H 18 145/64 95 09/24/19 08:45 80 16 133/73 100 09/24/19 08:22 96.8 F L 93 18 176/71 98 Intake and Output 09/24/19 09/24/19 09/24/19 06:59 14:59 22:59 Intake Total 2000 Output Total 50 Balance 1950 Intake: IV 2000 Output: Estimated Blood Loss 50 Other: Weight 157.8 kg PHYSICAL EXAMINATION: GENERAL: The patient is alert and oriented x3, not in any acute distress. Well developed, well nourished. HEENT: Pupils are round and equally reacting to light. EOMI. No scleral icterus. No conjunctival pallor. Normocephalic, atraumatic. No pharyngeal erythema. No thyromegaly. CARDIOVASCULAR: S1 and S2 present. No murmurs, rubs, or gallops. PULMONARY: Chest is clear to auscultation, no wheezing or crackles. ABDOMEN: Soft, nontender, nondistended, normoactive bowel sounds. No palpable organomegaly. MUSCULOSKELETAL: Surgical site area looks clean. EXTREMITIES: No cyanosis, clubbing, or pedal edema. NEUROLOGICAL: Gross neurological examination did not reveal any focal deficits. SKIN: No rashes. Results Labs: Abnormal Lab Results - Last 24 Hours (Table) 09/24/19 Range/Units 08:26 POC Glucose (mg/dL) 127 H (75-99) mg/dL Assessment and Plan Plan: -Hypertension perioperative hypotension is expected hold off antidepressants medications will monitor the blood pressure and appropriate home medications will be started starting with beta yobani to avoid reflex tachycardia. -History of SLE and fibromyalgia along with rheumatoid arthritis for which patient is on methotrexate which will resume - type 2 diabetes mellitus metformin will be held temporally and patient will be on sliding scale insulin -Obesity and sleep apnea and uses CPAP machine which very reordered again -Right knee arthroplasty: Patient is on aspirin 325 mg twice a day for DVT prophylaxis.
[2019-09-24] MEDS: HYDROcodone/APAP 5-325MG 1 EACH TAB PO PRN (15:17)
[2019-09-24 17:06] LABS: Glucose,Whole Blood 193 mg/dL (75-99)
[2019-09-24] MEDS: GABAPENTIN 400 MG CAP PO SCH ×2 (17:11→21:14)
[2019-09-24] MEDS: ceFAZolin 3 GM in SODIUM CHLORIDE 0.9% 100 ML IVPB SCH (17:11)
[2019-09-24] MEDS: SODIUM CHLORIDE 0.9% 1,000 ML IV SCH (17:17)
[2019-09-24] MEDS: INSULIN ASPART (NovoLOG) 100 UNIT/ML VIAL SQ SCH ×2 (18:04→21:14)
[2019-09-24 20:25] LABS: Glucose,Whole Blood 160 mg/dL (75-99)
[2019-09-24] MEDS ORDERED: ATORVASTATIN 40 MG TAB PO SCH (21:00)
[2019-09-24] MEDS ORDERED: SENNOSIDES-DOCUSATE SODIUM 1 EACH TAB PO SCH (21:00)
[2019-09-24] MEDS: HYDROXYCHLOROQUINE SULFATE 200 MG TAB PO SCH (21:13)
[2019-09-24] MEDS: metFORMIN 500 MG TAB PO SCH (21:13)
[2019-09-24] MEDS: ASPIRIN 325 MG TAB PO SCH (21:13)
[2019-09-24] MEDS: DULoxetine HCL 60 MG CAPSULE.DR PO SCH (21:14)
[2019-09-25] MEDS: SODIUM CHLORIDE 0.9% 1,000 ML IV SCH ×3 (02:58→13:09)
[2019-09-25] MEDS: ceFAZolin 3 GM in SODIUM CHLORIDE 0.9% 100 ML IVPB SCH (03:01)
[2019-09-25] MEDS: HYDROcodone/APAP 5-325MG 1 EACH TAB PO PRN ×3 (03:50→12:40)
[2019-09-25] MEDS: LACTATED RINGERS 1,000 ML IV SCH (05:55)
--- NOTE | 2019-09-25 06:46 | P.PN ---
Progress Note - Text Progress Note Date: 09/25/19 The patient is doing well status post total knee replacement. Pain is well con trolled by a combination of local anesthetic infusion through the adductor canal catheter and oral analgesics. There are no signs of infection around the catheter skin entry site. The local anesthetic infusion will be continued as per protocol.
[2019-09-25 06:51] LABS: Glucose,Whole Blood 152 mg/dL (75-99)
[2019-09-25 06:56] LABS: Basophils % (A) 0 %; Eosinophils % (A) 1 %; HCT 32.8 % (34.0-46.0); HGB 10.9 gm/dL (11.4-16.0); Hypochromasia Slight; Lymphocytes # (A) 1.9 k/uL (1.0-4.8); Lymphocytes % (A) 19 %; MCH 30.7 pg (25.0-35.0); MCHC 33.2 g/dL (31.0-37.0); MCV 92.6 fL (80.0-100.0); Mean Platelet Volume 9.2; Monocytes # (A) 0.6 k/uL (0-1.0); Monocytes % (A) 6 %; Neutrophils # (A) 7.2 k/uL (1.3-7.7); Neutrophils % (A) 73 %; Platelet Count 201 k/uL (150-450); RBC 3.54 m/uL (3.80-5.40); RDW 15.1 % (11.5-15.5); WBC 9.9 k/uL (3.8-10.6)
[2019-09-25] MEDS: metFORMIN 500 MG TAB PO SCH (07:39)
[2019-09-25] MEDS: GABAPENTIN 400 MG CAP PO SCH (07:40)
[2019-09-25] MEDS: DULoxetine HCL 60 MG CAPSULE.DR PO SCH (07:40)
[2019-09-25] MEDS: ASPIRIN 325 MG TAB PO SCH (07:42)
[2019-09-25] MEDS: INSULIN ASPART (NovoLOG) 100 UNIT/ML VIAL SQ SCH ×2 (07:45→13:10)
[2019-09-25 08:34] VITALS: BP 101/60; PULSE 92; RESP 17; TEMP 98.1
[2019-09-25] MEDS ORDERED: LISINOPRIL 10 MG TAB PO SCH (09:00)
[2019-09-25] MEDS ORDERED: FLUTICASONE 50MCG/SPRAY NASAL 16GM EA NOSTRIL SCH (09:00)
[2019-09-25] MEDS ORDERED: MELOXICAM 7.5 MG TAB PO SCH (09:00)
--- NOTE | 2019-09-25 09:06 | P.DS ---
Providers Expected date of discharge: 09/25/19 Attending physician: Zan Whatley Consults: 09/24/19 07:05 Consult Physician Routine Consulting Provider: Christelle Hurley Consult Reason/Comments: medical management Do you want consulting provider notified?: Yes Primary care physician: Geoffrey Dial MD - Discharge Diagnosis(es) (1) Osteoarthritis of right knee Current Visit: Yes Status: Acute (2) S/P total knee arthroplasty Current Visit: Yes Status: Acute Hospital Course: This is a 58-year-old female with known history of degenerative arthritis of the right knee. The patient presents for evaluation. After discussion and consideration patient elected to proceed with total knee arthroplasty. The patient is seen preoperatively by Dr. Whatley and medically cleared for surgery by their primary care physician. Patient is admitted to [facility] on 09/24/2019 for total knee arthroplasty. The procedures performed without complication or sequelae. The patient is doing well postoperatively. Labs and vital signs are stable on day of discharge. On day of discharge patient's knee incision is healing well. There is minimal erythema. There is no drainage noted at this time. There is minimal soft tissue swelling to the knee. Patient has full foot and ankle motion without difficulty or pain. Calf is soft and nontender to palpation. Neurovascular status to the right lower extremity is intact. Patient is discharged home in good condition. Opioid start talking form is reviewed and signed at patient bedside. Please see med rec for accurate list of home medications. Plan - Discharge Summary Discharge Rx Participant: No New Discharge Prescriptions: New Aspirin 325 mg PO BID #60 tab HYDROcodone/APAP 5-325MG [[place] 5-325] 1 - 2 tab PO Q6HR PRN #56 tab PRN Reason: Pain Sennosides [Senokot] 2 tab PO DAILY PRN #60 tablet PRN Reason: Constipation No Action Atorvastatin [Lipitor] 40 mg PO HS metFORMIN HCL [metFORMIN HCL ER] 1,000 mg PO BID Furosemide [Lasix] 40 mg PO DAILY PRN PRN Reason: Edema Potassium Chloride ER [K-Dur 10] 10 meq PO HS Methotrexate Sodium [Methotrexate] 10 mg PO MO Folic Acid 1 mg PO DAILY Lisinopril-Hctz 20-12.5 mg [Zestoretic 20-12.5] 1 tab PO HS Fluticasone Nasal [place] [Flonase Nasal [place]] 2 spr EA NOSTRIL DAILY Diclofenac Sodium [Voltaren Gel] 1 applic TOPICAL DAILY PRN PRN Reason: Pain DULoxetine HCL [Cymbalta] 60 mg PO BID Hydroxychloroquine Sulfate [Plaquenil] 200 mg PO BID Gabapentin 800 mg PO TID #3 tab traZODone HCL 150 mg PO HS PRN PRN Reason: sleep Acetaminophen Tab [Tylenol] 650 mg PO Q6H PRN PRN Reason: Pain Discharge Medication List Atorvastatin [Lipitor] 40 mg PO HS 01/11/18 [History] Furosemide [Lasix] 40 mg PO DAILY PRN 01/11/18 [History] Potassium Chloride ER [K-Dur 10] 10 meq PO HS 01/11/18 [History] metFORMIN HCL [metFORMIN HCL ER] 1,000 mg PO BID 01/11/18 [History] DULoxetine HCL [Cymbalta] 60 mg PO BID 05/08/19 [History] Diclofenac Sodium [Voltaren Gel] 1 applic TOPICAL DAILY PRN 05/08/19 [History] Fluticasone Nasal [place] [Flonase Nasal [place]] 2 spr EA NOSTRIL DAILY 05/08/19 [History] Folic Acid 1 mg PO DAILY 05/08/19 [History] Hydroxychloroquine Sulfate [Plaquenil] 200 mg PO BID 05/08/19 [History] Lisinopril-Hctz 20-12.5 mg [Zestoretic 20-12.5] 1 tab PO HS 05/08/19 [History] Methotrexate Sodium [Methotrexate] 10 mg PO MO 05/08/19 [History] Gabapentin 800 mg PO TID #3 tab 05/17/19 [Rx] Acetaminophen Tab [Tylenol] 650 mg PO Q6H PRN 09/20/19 [History] traZODone HCL 150 mg PO HS PRN 09/20/19 [History] Aspirin 325 mg PO BID #60 tab 09/25/19 [Rx] HYDROcodone/APAP 5-325MG [[place] 5-325] 1 - 2 tab PO Q6HR PRN #56 tab 09/25/19 [Rx] Sennosides [Senokot] 2 tab PO DAILY PRN #60 tablet 09/25/19 [Rx] Follow up Appointment(s)/Referral(s): Zan Whatley DO [Doctor of Osteopathic Medicine] - 2 Weeks Patient Instructions/Handouts: *Surgery [facility] - On-Q Pain Pump Discharge Instructions, Knee Replacement (DC) Activity/Diet/Wound Care/Special Instructions: Weightbearing as tolerated with a walker. CPM 5-6h daily. Leave dressing intact. May be removed by home care nurse or by patient in 10 days. May shower with dressing on. Recommend use of compression stockings daily until follow up to help prevent swelling and blood clots. May remove at night before sleeping. Please follow up with [facility] and call with any questions or concerns, . Discharge Disposition: HOME WITH HOME HEALTH SERVICES
[2019-09-25] MEDS: HYDROXYCHLOROQUINE SULFATE 200 MG TAB PO SCH (09:28)
[2019-09-25 11:27] LABS: Glucose,Whole Blood 128 mg/dL (75-99)
--- NOTE | 2019-09-25 13:07 | P.PN ---
Subjective No overnight events patient pain is well controlled and is being discharged today. Patient blood pressure remains low normal because of which her DAWIT inhibitor diuretic, patient is being discontinued and I'm prescribing her lisinopril 10 mg which is admitted decrease the dose and if patient blood pressure is okay as starts going up which is expected by tomorrow patient can take this medication tomorrow night asked her to hold the any antidepressant medications today to avoid hypotension. Constitutional: Denied any fatigue denied any fever. Cardio vascular: denied any chest pain, palpitations Gastrointestinal denied any nausea vomiting Pulmonary: Denied any shortness of breath cough Neurologic denied any new focal deficits All inpatient medications were reviewed and appropriate changes in these medications as dictated in the interval history and assessment and plan. Objective - Vital Signs Vital signs: Vital Signs Temp 98.1 F 09/25/19 07:00 Pulse 92 09/25/19 07:00 Resp 17 09/25/19 07:00 BP 101/60 09/25/19 07:00 Pulse Ox 99 09/25/19 07:00 Intake & Output 09/24/19 09/25/19 09/25/19 18:59 06:59 18:59 Intake Total 2000 Output Total 50 Balance 1950 Weight 157.8 kg Intake: IV 2000 Output: Estimated Blood Loss 50 Other: Voiding Method Toilet Toilet # Voids 1 - Exam PHYSICAL EXAMINATION: GENERAL: The patient is alert and oriented x3, not in any acute distress. Well developed, well nourished. HEENT: Pupils are round and equally reacting to light. EOMI. No scleral icterus. No conjunctival pallor. Normocephalic, atraumatic. No pharyngeal erythema. No thyromegaly. CARDIOVASCULAR: S1 and S2 present. No murmurs, rubs, or gallops. PULMONARY: Chest is clear to auscultation, no wheezing or crackles. ABDOMEN: Soft, nontender, nondistended, normoactive bowel sounds. No palpable organomegaly. MUSCULOSKELETAL: Deferred to orthopedic surgery EXTREMITIES: No cyanosis, clubbing, or pedal edema. NEUROLOGICAL: Gross neurological examination did not reveal any focal deficits. SKIN: No rashes. - Labs CBC & Chem 7: 09/25/19 06:09 Labs: Abnormal Lab Results - Last 24 Hours (Table) 09/24/19 09/24/19 09/25/19 Range/Units 17:05 20:24 06:09 RBC 3.54 L (3.80-5.40) m/uL Hgb 10.9 L (11.4-16.0) gm/dL Hct 32.8 L (34.0-46.0) % POC Glucose (mg/dL) 193 H 160 H (75-99) mg/dL 09/25/19 09/25/19 Range/Units 06:50 11:25 RBC (3.80-5.40) m/uL Hgb (11.4-16.0) gm/dL Hct (34.0-46.0) % POC Glucose (mg/dL) 152 H 128 H (75-99) mg/dL Assessment and Plan Plan: -Hypertension as mentioned in HPI -History of SLE and fibromyalgia along with rheumatoid arthritis for which pat ient is on methotrexate which will resume - type 2 diabetes mellitus metformin will be held temporally and patient will be on sliding scale insulin -Obesity and sleep apnea and uses CPAP machine which very reordered again -Right knee arthroplasty: Patient is on aspirin 325 mg twice a day for DVT pro phylaxis.
[2019-09-30] MEDS ORDERED: METHOTREXATE SODIUM 2.5 MG TAB PO SCH (09:00)
== END 2019-09-25 13:00 | disposition home health service (06) ==
LOC: OR 07:43 → 4SSUR 11:13 → OR 09-25 13:00
PROVIDERS: ATTEND Orthopaedic Surgery
DX: M17.11 Unilateral primary osteoarthritis, right knee (principal); I11.0 Hypertensive heart disease with heart failure; I50.9 Heart failure, unspecified; E78.5 Hyperlipidemia, unspecified; E11.9 Type 2 diabetes mellitus without complications; M32.9 Systemic lupus erythematosus, unspecified; M79.7 Fibromyalgia; M06.9 Rheumatoid arthritis, unspecified; G89.4 Chronic pain syndrome; E66.01 Morbid (severe) obesity due to excess calories; L82.1 Other seborrheic keratosis; G47.33 Obstructive sleep apnea (adult) (pediatric); Z97.3 Presence of spectacles and contact lenses; Z79.84 Long term (current) use of oral hypoglycemic drugs; Z79.82 Long term (current) use of aspirin; Z79.899 Other long term (current) drug therapy; Z88.5 Allergy status to narcotic agent; Z88.8 Allergy status to other drugs, medicaments and biological substances; Z90.710 Acquired absence of both cervix and uterus; Z90.49 Acquired absence of other specified parts of digestive tract; Z98.890 Other specified postprocedural states; Z96.652 Presence of left artificial knee joint; Z87.891 Personal history of nicotine dependence; Z88.7 Allergy status to serum and vaccine; Z99.89 Dependence on other enabling machines and devices; Z68.43 Body mass index [BMI] 50.0-59.9, adult; Z82.49 Family history of ischemic heart disease and other diseases of the circulatory system; Z83.3 Family history of diabetes mellitus; Z80.1 Family history of malignant neoplasm of trachea, bronchus and lung
CPT/HCPCS: 97110; 97161; 64448; 76942; 85025; 88300; 73560; 27447; C1713; C1776; J2250; J0171; J1100; J0690 ×3; J2405; J1885; J2795 ×2; J0735; J1170

== ENCOUNTER → 2021-07-30 | Outpatient (CLI) | payer OTHER ==
[2021-07-30 12:56] VITALS: BP 148/77; PULSE 83; RESP 17; TEMP 98.3
--- NOTE | 2021-07-30 13:52 | P.GSHP ---
History of Present Illness H&P Date: 07/30/21 Chief Complaint: abnormal mammogram Brandon is a 60 year old white female seen in consultation for Dr. Dial regarding an abnormal bilateral mammogram form 07-13-21. This was a routine mammogram. The patient does not feel any lumps masses or nodules of concern in either breast. The mammogram revealed in the right breast a grouping of calcifications in the upper outer quadrant 14 cm from the nipple which demonstrated varying characteristics. Stereotactic core biopsy was recommended. Additionally a 3 mm nodule in the periareolar region was identified and an ultrasound was recommended. The left breast demonstrated a 4 mm nodule in the periareolar region at ivan roximately the 3:00 location for which ultrasound was also recommended. No calcifications of concern were noted in the left breast. She has not had a recent ultrasound done at this time. She is not complaining of any nipple discharge or skin changes. She had not had any breast biopsies or surgery on her breast. She has not had an any recent infection or trauma to her breast. The patient has chronic back pain related to macromastia. Additionally she has fungal infections under each breast for greater than a year despite multiple courses of treatment which did not heal secondary to the large size of the breast. The patient also has cervical pain related most likely to the macromastia she has had treated but without resolution. Note from 07-23-21 reviewed. Caffeine: 2 kurig pods/day nicotine: none, stopped 20 years ago, used to smoke from 11 to 38 1 1/2 PPD chocolate: occasional BCP: none hormones: none; hysterectomy at 28, done for fibroid tumors; took both ovaries Family History: mother: breast and lung cancer niece: ovarian cancer Hormonal History: menarche: 11 G0 menopause: surgical at 28 hormones: none BCP: none Surgical History: Hysterectomy with bilateral oophrectomy bilateral knees vein stripping bilateral scopes on both ankles for arthritis appy gallbaldder Medical HIstory: Type 2 diabetes Renal insufficiency/acute Osteoarthritis Fibromyalgia Polyarthralgia Lupus Hypertension Hyperlipidemia Social History: Nicotine: Negative stopped 20 years ago used to smoke from the age of [age]; 11/2 packs per day Alcohol: occasional drugs:none - Constitutional Constitutional: Denies chills, Denies fever - EENT Eyes: denies blurred vision, denies pain Ears: deny: decreased hearing, tinnitus Ears, nose, mouth and throat: Denies headache, Denies sore throat - Breasts Breasts: bilateral: as per HPI - Cardiovascular Cardiovascular: Denies chest pain, Denies shortness of breath - Respiratory Respiratory: Denies cough, Denies 7 - Gastrointestinal Gastrointestinal: Denies abdominal pain, Denies diarrhea, Denies nausea, Denies vomiting - Genitourinary (Female) Genitourinary: Denies dysuria, Denies hematuria - Menstruation Menstruation: Reports post hysterectomy - Musculoskeletal Musculoskeletal: Reports as per HPI, Reports myalgias - Integumentary Integumentary: Denies pruritus, Denies rash - Neurological Neurological: Denies numbness, Denies weakness - Endocrine Comment: lost 75 pounds on purpose Endocrine: Reports weight change, Denies fatigue - Hematologic/Lymphatic Comment: varicose veins close to the surface of the skin - Allergic/Immunologic Allergic/Immunologic: Reports as per HPI Past Medical History Past Medical History: Heart Failure, Diabetes Mellitus, Fibromyalgia, Osteoarthritis (OA), Rheumatoid Arthritis (RA), Sleep Apnea/CPAP/BIPAP Additional Past Medical History / Comment(s): Pt states is not hypertensive nor have elevated lipids-she takes Rx for preventative d/t DM. 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 No tx for sleep apnea. Varicose veins. History of Any Multi-Drug Resistant Organisms: None Reported Past Surgical History: Cholecystectomy, Hysterectomy, Joint Replacement, Orthopedic Surgery Additional Past Surgical History / Comment(s): Bilateral varicose vein surgeries, LR ankle and knee arthroscopies. Total Lt Knee 05/15/19 Past Anesthesia/Blood Transfusion Reactions: Previous Problems w/ Anesthesia Additional Past Anesthesia/Blood Transfusion Reaction / Comment(s): states has been hard to awake in past Past Psychological History: No Psychological Hx Reported Additional Psychological History / Comment(s): Pt has her mother residing with her. 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 She is independent. Smoking Status: Former smoker Past Alcohol Use History: Occasional Additional Past Alcohol Use History / Comment(s): Pt started smoking in 1974, quit about 1999. Past Drug Use History: None Reported - Past Family History Mother Family Medical History: Cancer, COPD Additional Family Medical History / Comment(s): Mother had lung cancer stage IV Father Family Medical History: CVA/TIA, Hypertension Additional Family Medical History / Comment(s): Father had a pacemaker. He age 70yrs - unsure of cause of Medications and Allergies Home Medications Medication Instructions Recorded Confirmed Type Atorvastatin [Lipitor] 40 mg PO HS 01/11/18 07/30/21 History Furosemide [Lasix] 40 mg PO DAILY PRN 01/11/18 07/30/21 History Potassium Chloride ER [K-Dur 10] 10 meq PO HS 01/11/18 07/30/21 History metFORMIN HCL [metFORMIN HCL ER] 500 mg PO BID 01/11/18 07/30/21 History DULoxetine HCL [Cymbalta] 60 mg PO BID 05/08/19 07/30/21 History Diclofenac Sodium [Voltaren Gel] 1 applic TOPICAL DAILY PRN 05/08/19 07/30/21 History Fluticasone Nasal [place] [Flonase 2 spr EA NOSTRIL DAILY 05/08/19 07/30/21 History Nasal [place]] Folic Acid 1 mg PO DAILY 05/08/19 07/30/21 History Hydroxychloroquine Sulfate 200 mg PO BID 05/08/19 07/30/21 History [Plaquenil] Acetaminophen Tab [Tylenol] 650 mg PO Q6H PRN 09/20/19 07/30/21 History traZODone HCL 150 mg PO HS PRN 09/20/19 07/30/21 History Sennosides [Senokot] 2 tab PO DAILY PRN #60 tablet 09/25/19 07/30/21 Rx lisinopriL [Zestril] 10 mg PO DAILY #30 tab 09/25/19 07/30/21 Rx Allergies Allergy/AdvReac Type Severity Reaction Status Date / Time Phenothiazines Allergy Rash/Hives Verified 07/30/21 12:48 Tetanus Vaccines and Toxoid Allergy Unknown Verified 07/30/21 12:48 codeine AdvReac Confusion Verified 07/30/21 12:48 Surgical - Exam Vital Signs Temp Pulse Resp BP Pulse Ox 98.3 F 83 17 148/77 99 07/30/21 12:53 07/30/21 12:53 07/30/21 12:53 07/30/21 12:53 07/30/21 12:53 BMI: 54.1 - General no distress - Eyes normal ocular movement - Neck trachea midline - Respiratory normal respiratory effort, clear to auscultation - Cardiovascular Rhythm: regular Heart Sounds: normal: S1, S2 - Abdomen Abdomen: soft, non tender, no guarding, no rigid, no rebound - Integumentary infection under breast - Neurologic no disoriented, no combative - Musculoskeletal uses a walker - Psychiatric oriented to time, oriented to person, oriented to place, speech is normal, memory intact Breast Exam: BRA: 50F Inspection: Bilateral grade 3 ptosis Palpation: Right breast: Multi-positional exam fibrocystic changes no dominant masses or nodules of concern Right axilla: No adenopathy of concern Left breast: Multi-positional exam fibrocystic changes no dominant masses or nodules of concern Left axilla: No adenopathy of concern Results Mammogram report reviewed, the x-rays are not yet available to us Assessment and Plan Assessment: Impression: Type 2 diabetes Renal insufficiency/acute Osteoarthritis Fibromyalgia Polyarthralgia Lupus Hypertension Hyperlipidemia Macromastia symptomatic, chronic back pain, chronic cervical pain, persistent fungal infections under both breast Radiographic abnormality bilateral breast Plan: Stereotactic core biopsy right breast Bilateral breast ultrasound Possible ultrasound-guided core biopsy after ultrasound is done The awaiting the films from the outside source nystatin cream to apply under her breast I have talked to the patient regarding breast reduction as well. She would like very much to have breast reduction done. She states that her breasts are very heavily, despite the fact that she has had multiple attempts at healing of the infection of the breast for over a year this will not heal and comes back right away secondary to the moisture under the breast. She has chronic back and ce rvical pain again related to the breast. She also has symptomatic shoulder notching bilaterally. CC:
== END ==
LOC: WWCWWP 12:40
PROVIDERS: ATTEND Surgery
DX: N62 Hypertrophy of breast (principal); G89.29 Other chronic pain; E11.40 Type 2 diabetes mellitus with diabetic neuropathy, unspecified; E78.5 Hyperlipidemia, unspecified; I11.0 Hypertensive heart disease with heart failure; I50.9 Heart failure, unspecified; M19.90 Unspecified osteoarthritis, unspecified site; M79.7 Fibromyalgia; M32.9 Systemic lupus erythematosus, unspecified; B36.8 Other specified superficial mycoses; N28.9 Disorder of kidney and ureter, unspecified; M25.50 Pain in unspecified joint; M06.9 Rheumatoid arthritis, unspecified; Z87.891 Personal history of nicotine dependence; Z88.5 Allergy status to narcotic agent; Z88.7 Allergy status to serum and vaccine; Z79.84 Long term (current) use of oral hypoglycemic drugs

== ENCOUNTER → 2021-08-06 | Outpatient (CLI) | payer OTHER ==
--- NOTE | 2021-08-09 13:40 | USB ---
Reason for exam: clinical finding. Physical Findings: A clinical breast exam by your physician is recommended on an annual basis and results should be correlated with mammographic findings. US Breast Limited BILAT Left limited breast ultrasound including focal area of concern, retroareolar and axilla demonstrates a 0.6 x 0.4 x 0.5cm round, solid, hypoechoic, avascular lesion at 2 o'clock, 6cm from nipple, likely corresponds to mammographic abnormality. Right limited breast ultrasound including focal area of concern, retroareolar and axilla demonstrates no cystic or solid lesion seen. Results were given to the patient verbally at the time of the exam. ASSESSMENT: Suspicious, BI-RAD 4 RECOMMENDATION: Ultrasound core biopsy of the left breast. Called Dr. Huff's office with mammographic findings, office will call patient with appointment. Biopsy scheduled for 08/18/21 at 7:30. PRELIMINARY REPORT CALLED AND FAXED TO DR. HUFF ON 08/09/21.
== END | disposition home or self-care (01) ==
LOC: RADUSWWP 06:50
PROVIDERS: ATTEND Surgery
DX: R92.8 Other abnormal and inconclusive findings on diagnostic imaging of breast (principal)

== ENCOUNTER → 2021-09-16 | Outpatient (CLI) | payer OTHER ==
[2021-09-16 15:06] VITALS: BP 136/70; PULSE 98; RESP 17; TEMP 98.3
--- NOTE | 2021-09-16 15:13 | P.PN ---
Subjective Progress Note Date: 09/16/21 Principal diagnosis: Fibrocystic breast changes Brandon is a 60-year-old white female status post ultrasound-guided core guided biopsy of [place] 2:00 [place] [id number]. Pathology revealed fibrocystic changes this was felt to be benign and concordant. The r ecommendation was for follow-up mammogram of the left breast in 6 months. She underwent [place] [address] this revealed focal coarse calcifications associated with fibrosis. This was read by the radiologist and felt to be concordant. She tolerated biopsy of both sides with no problems. Objective - Constitutional General appearance: Present: cooperative - EENT Eyes: Present: EOMI ENT: Present: hearing grossly normal - Neck Neck: Present: normal ROM - Respiratory Respiratory: bilateral: CTA - Cardiovascular Heart sounds: normal: S1, S2 - Integumentary Integumentary Comment(s): Biopsy sites bilateral breast clean and dry no evidence of infection or hematoma Integumentary: Present: normal turgor - Musculoskeletal Musculoskeletal Comment(s): uses a walker - Psychiatric Psychiatric: Present: A&O x's 3, appropriate affect, intact judgment & insight Assessment and Plan Assessment: Impression: Patient status post ultrasound-guided core biopsy left breast and stereotactic core biopsy right breast both are benign and concordant Plan: Bilateral mammogram in 6 months and left breast ultrasound in 6 months Follow-up at that time CC: Dr. Jayro Han
== END ==
LOC: WWCWWP 14:39
PROVIDERS: ATTEND Surgery
DX: D24.1 Benign neoplasm of right breast (principal); D24.2 Benign neoplasm of left breast; Z88.7 Allergy status to serum and vaccine; Z88.5 Allergy status to narcotic agent; Z88.8 Allergy status to other drugs, medicaments and biological substances; Z87.891 Personal history of nicotine dependence

== ENCOUNTER 2021-12-14 07:07 | Day surgery (SDC) | payer OTHER ==
[2021-12-09 16:12] VITALS: BMI 54.6
[~2021-12-14 07:07] MED LIST changes: -ACETAMINOPHEN TAB 500 MG TAB PO ONE; -BISACODYL 10 MG SUPP RECTAL PRN; -DEXAMETHASONE SOD PHOSPHATE 10 MG/ML 1 ML VIAL IV ONE; +DEXAMETHASONE SOD PHOSPHATE 4 MG/ML 1 ML VIAL IV ONE; -DIAZEPAM 5 MG TAB PO PRN; -GABAPENTIN 300 MG CAP PO ONE; +HEPARIN SODIUM,PORCINE/PF 5,000 UNIT/0.5 ML SYRINGE SQ PRN; -HYDROcodone/APAP 5-325MG 1 EACH TAB PO PRN; -HYDROmorphone 0.5 MG/0.5 ML SYRINGE IVP PRN; -HYDROmorphone 1 MG/ML 1 ML SYRINGE IVP PRN; -MAGNESIUM HYDROXIDE 2,400 MG/10 ML CUP PO PRN; -MELOXICAM 7.5 MG TAB PO ONE; -NA PHOS,M-B/NA PHOS,DI-BA 133 ML ENEMA RECTAL PRN; -NALOXONE 0.4 MG/ML 1 ML VIAL IV PRN; -ONDANSETRON 4 MG/2 ML VIAL IVP PRN; +Pre Op ABX Message 1 EACH MISC MISCELLANE ONE; -ROPIVACAINE 246.25 MG, EPINEPHrine 0.5 MG, KETOROLAC 30 MG, cloNIDine HCL/PF 80 MCG, WA... MISCELLANE ONE; -SCOPOLAMINE 1.5MG/72HR PATCH TRANSDERM ONE; -TRANEXAMIC ACID 1,000 MG in SODIUM CHLORIDE 0.9% 100 ML IVPB ONE; -ceFAZolin 3 GM in SODIUM CHLORIDE 0.9% 100 ML IVPB ONE; +ceFAZolin 3 GM in SODIUM CHLORIDE 0.9% 100 ML IVPB PRN; +fentaNYL (PF) 50 MCG/ML 2 ML AMP IV PRN; -hydrOXYzine PAMOATE 25 MG CAP PO PRN
[2021-12-14] MEDS ORDERED: SODIUM CHLORIDE 0.9% 100 ML BAG ONE (08:17)
[2021-12-14] MEDS ORDERED: PROPOFOL 10 MG/ML 20 ML VIAL IV ONE (08:17)
[2021-12-14] MEDS ORDERED: PHENYLEPHRINE-0.9% NACL SYG 1,000 MCG/10 ML SYRINGE ONE (08:17)
[2021-12-14] MEDS ORDERED: SUCCINYLCHOLINE CHLORIDE 200 MG/10 ML VIAL IV ONE (08:17)
[2021-12-14] MEDS ORDERED: ePHEDrine 50 MG/ML 1 ML VIAL ONE (08:17)
[2021-12-14] MEDS ORDERED: MIDAZOLAM 2 MG/2 ML VIAL ONE (08:17)
[2021-12-14] MEDS ORDERED: fentaNYL (PF) 50 MCG/ML 2 ML AMP ONE (08:17)
[2021-12-14] MEDS ORDERED: HYDROmorphone (PF) 1 MG/ML ONE (08:17)
[2021-12-14] MEDS ORDERED: LIDOCAINE 2% INJ 20 MG/ML (2 ML VIAL) ONE (08:17)
[2021-12-14] MEDS ORDERED: KETAMINE 10 MG/ML 20 ML VIAL ONE (08:17)
[2021-12-14] MEDS ORDERED: ONDANSETRON 4 MG/2 ML VIAL ONE (08:17)
[2021-12-14] MEDS ORDERED: ceFAZolin 1,000 MG VIAL ONE (08:17)
[2021-12-14] MEDS: LACTATED RINGERS 1,000 ML IV SCH ×2 (08:18→19:55)
[2021-12-14 08:20] LABS: Glucose,Whole Blood 111 mg/dL (70-110)
[2021-12-14] MEDS ORDERED: LACTATED RINGERS 1,000 ML IV ONE (12:19)
[2021-12-14 19:09] LABS: Glucose,Whole Blood 139 mg/dL (70-110)
[2021-12-14] MEDS ORDERED: HYDROmorphone 1 MG/ML 1 ML SYRINGE IVP PRN (19:49)
[2021-12-14] MEDS ORDERED: DEXTROSE 5%-0.45% NACL 1,000 ML IV SCH (20:00)
[2021-12-14 20:22] LABS: Glucose,Whole Blood 133 mg/dL (70-110)
[2021-12-14 20:36] VITALS: RESP 16
[2021-12-14] MEDS: HYDROcodone/APAP 5-325MG 1 EACH TAB PO PRN (21:22)
[2021-12-14] MEDS: HEPARIN SODIUM,PORCINE/PF 5,000 UNIT/0.5 ML SYRINGE SQ SCH (21:23)
[2021-12-15] MEDS: ceFAZolin 3 GM in SODIUM CHLORIDE 0.9% 100 ML IVPB SCH ×2 (00:57→09:04)
[2021-12-15] MEDS: HYDROcodone/APAP 5-325MG 1 EACH TAB PO PRN ×3 (01:23→11:47)
[2021-12-15 08:22] VITALS: BP 108/54; PULSE 69; TEMP 98.9
[2021-12-15] MEDS: HEPARIN SODIUM,PORCINE/PF 5,000 UNIT/0.5 ML SYRINGE SQ SCH (09:05)
--- NOTE | 2021-12-15 11:39 | P.PN ---
Subjective Progress Note Date: 12/15/21 Principal diagnosis: POD #1 bilateral mastectomys Patient is POD #1 bilateral mastectomies. She is doing well without complaints. Drains bilateral serous. right side: 120 CC; left side 50 CC. Objective - Vital Signs Vital signs: Vital Signs Temp 98.9 F 12/15/21 08:00 Pulse 69 12/15/21 08:00 Resp 16 12/15/21 08:00 BP 108/54 12/15/21 08:00 Pulse Ox 98 12/15/21 08:00 FiO2 Intake & Output 12/14/21 12/15/21 12/15/21 18:59 06:59 18:59 Intake Total 100 Output Total 1750 120 Balance 100 -1750 -120 Weight 155 kg 155 kg Intake: IV 100 Output: Drainage 50 120 Left Chest 10 40 Right Chest 40 80 Urine 1700 Other: # Voids 1 - Constitutional General appearance: Present: cooperative - EENT Eyes: Present: EOMI ENT: Present: hearing grossly normal - Neck Neck: Present: normal ROM - Respiratory Respiratory: bilateral: CTA - Cardiovascular Rhythm: regular Heart sounds: normal: S1, S2 - Integumentary Integumentary Comment(s): incisions clean and dry bilateral Integumentary: Present: normal turgor - Psychiatric Psychiatric: Present: A&O x's 3, appropriate affect, intact judgment & insight - Labs CBC & Chem 7: 12/14/21 08:12 Labs: Abnormal Lab Results - Last 24 Hours (Table) 12/14/21 12/14/21 Range/Units 16:02 20:20 POC Glucose (mg/dL) 139 H 133 H (70-110) mg/dL Assessment and Plan Assessment: Impression: Patient doing well Plan: awaiting medicine consult CBC pending probable discharge home today with followup in one week
--- NOTE | 2021-12-15 11:42 | P.DS ---
Providers Date of admission: 10-13-21 Expected date of discharge: 12/15/21 Attending physician: Vivi Huff Primary care physician: Geoffrey Dial MD Hospital Course: Patient is status post bilateral mastectomy on 10-13-21. Post op she has done well. Procedures: bilateral mastectomy Plan - Discharge Summary Discharge Rx Participant: No New Discharge Prescriptions: No Action Atorvastatin [Lipitor] 40 mg PO HS Furosemide [Lasix] 40 mg PO DAILY PRN PRN Reason: Edema Potassium Chloride ER [K-Dur 10] 10 meq PO HS Fluticasone Nasal [place] [Flonase Nasal [place]] 2 spr EA NOSTRIL DAILY DULoxetine HCL [Cymbalta] 60 mg PO BID Hydroxychloroquine Sulfate [Plaquenil] 200 mg PO BID Lisinopril-Hctz 20-12.5 mg [Zestoretic 20-12.5] 1 tab PO BID Primidone [Mysoline] 50 mg PO HS metFORMIN HCL [Glucophage] 1,000 mg PO BID traZODone HCL 100 mg PO HS PRN PRN Reason: sleep Pregabalin [Lyrica] 75 mg PO TID Discharge Medication List Atorvastatin [Lipitor] 40 mg PO HS 01/11/18 [History] Furosemide [Lasix] 40 mg PO DAILY PRN 01/11/18 [History] Potassium Chloride ER [K-Dur 10] 10 meq PO HS 01/11/18 [History] DULoxetine HCL [Cymbalta] 60 mg PO BID 05/08/19 [History] Fluticasone Nasal [place] [Flonase Nasal [place]] 2 spr EA NOSTRIL DAILY 05/08/19 [History] Hydroxychloroquine Sulfate [Plaquenil] 200 mg PO BID 05/08/19 [History] Primidone [Mysoline] 50 mg PO HS 09/16/21 [History] Lisinopril-Hctz 20-12.5 mg [Zestoretic 20-12.5] 1 tab PO BID 12/09/21 [History] Pregabalin [Lyrica] 75 mg PO TID 12/09/21 [History] metFORMIN HCL [Glucophage] 1,000 mg PO BID 12/09/21 [History] traZODone HCL 100 mg PO HS PRN 12/09/21 [History] Follow up Appointment(s)/Referral(s): Vivi Huff MD [STAFF PHYSICIAN] - 1 Week Activity/Diet/Wound Care/Special Instructions: do not drive until seen by Dr. Pichardo may shower after 48 hours teach drain care; drain and record BID and as needed wear shelia wrap at all times Discharge Disposition: HOME SELF-CARE
[2021-12-15 12:04] LABS: Anisocytosis Slight; Basophils # (A) 0.1 k/uL (0-0.2); Basophils % (A) 1 %; Eosinophils # (A) 0.1 k/uL (0-0.7); Eosinophils % (A) 1 %; Hypochromasia Slight; Lymphocytes # (A) 2.1 k/uL (1.0-4.8); Lymphocytes % (A) 28 %; MCH 28.3 pg (25.0-35.0); MCHC 31.6 g/dL (31.0-37.0); MCV 89.5 fL (80.0-100.0); Mean Platelet Volume 9.2; Monocytes # (A) 0.6 k/uL (0-1.0); Monocytes % (A) 7 %; Neutrophils # (A) 4.7 k/uL (1.3-7.7); Neutrophils % (A) 61 %; Platelet Count 165 k/uL (150-450); RBC 4.25 m/uL (3.80-5.40); WBC 7.7 k/uL (3.8-10.6)
--- NOTE | 2021-12-15 13:31 | P.CONS ---
History of Present Illness - Reason for Consult Consult date: 12/15/21 - Chief Complaint Medical management - History of Present Illness 61-year-old woman with medical history of hypertension, hyperlipidemia, diabetes type 2, rheumatoid arthritis presented for bilateral mastectomy. Medicine was consulted for medical management. Patient is stable and feels well without any complaints. She tells me that her last A1c was checked recently and it was only 5, therefore, she's been tapering off her metformin. She also has good blood pressures despite not been receiving any of her home blood pressure medications while here. She otherwise denies fevers, chills, nausea, vomiting, chest pain, palpitations, syncope, presyncope, constipation, diarrhea, cough, dyspnea, dysuria, dyschezia, numbness/weakness of extremities. All Systems reviewed and pertinent positives and negatives noted in HPI, all other symptoms are negative Gen: in no apparent distress, resting comfortably in bed Eyes: PERRL, no scleral injection or icterus HENT: normocephalic, atraumatic, good hearing acuity, moist mucous membranes Neck: no tracheal deviation, full range of motion Resp: good air exchange, breathing comfortably with no accessory muscle use, no tactile fremitus CVS: good distal perfusion x 4, no pitting edema GI: soft, NTTP, ND, no hepatosplenomegaly : no suprapubic tenderness, no CVAT, garcia catheter not present MSK: no clubbing, no cyanosis, no noted contractures of extremities Skin: no noted rashes, petechiae; temperature of skin is appropriate Neuro: moving all extremities without signs of weakness, CN II-XII intact Psych: cooperative, euthymic mood, insight and judgment intact Assessment/plan: Diabetes type 2 -Recommend stopping metformin for now and rechecking A1c in 3 months -Maintain lifestyle changes Hypertension -Recommend holding lisinopril/hydrochlorothiazide, rechecking daily blood pressures -Resume BP medication if blood pressures are high, keep log pressures -Follow up with primary care physician in one to 2 weeks Hyperlipidemia Rheumatoid arthritis -No medication changes required on discharge Patient is stable from discharge from medical perspective Past Medical History Past Medical History: COPD, Diabetes Mellitus, Fibromyalgia, Osteoarthritis (OA), Rheumatoid Arthritis (RA), Sleep Apnea/CPAP/BIPAP Additional Past Medical History / Comment(s): Pt states is not hypertensive nor have elevated lipids-she takes Rx for preventative d/t DM. 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 Varicose veins. History of Any Multi-Drug Resistant Organisms: None Reported Past Surgical History: Cholecystectomy, Hysterectomy, Joint Replacement, Orthopedic Surgery Additional Past Surgical History / Comment(s): Bilateral varicose vein surgeries, librado ankle and knee arthroscopies. librado knee replacement, librado cataracts Past Anesthesia/Blood Transfusion Reactions: Previous Problems w/ Anesthesia Additional Past Anesthesia/Blood Transfusion Reaction / Comm: states has been hard to awake in past Past Psychological History: No Psychological Hx Reported Additional Psychological History / Comment(s): . Smoking Status: Former smoker Past Alcohol Use History: None Reported Additional Past Alcohol Use History / Comment(s): Pt started smoking in 1974, quit about 1999. Past Drug Use History: None Reported - Past Family History Mother Family Medical History: Cancer Additional Family Medical History / Comment(s): lung and breast cancer Father Family Medical History: Hypertension Additional Family Medical History / Comment(s): Father had a pacemaker. He age 70yrs - unsure of cause of Medications and Allergies Home Medications Medication Instructions Recorded Confirmed Type Atorvastatin [Lipitor] 40 mg PO HS 01/11/18 12/09/21 History Furosemide [Lasix] 40 mg PO DAILY PRN 01/11/18 12/09/21 History Potassium Chloride ER [K-Dur 10] 10 meq PO HS 01/11/18 12/09/21 History DULoxetine HCL [Cymbalta] 60 mg PO BID 05/08/19 12/09/21 History Fluticasone Nasal [place] [Flonase 2 spr EA NOSTRIL DAILY 05/08/19 12/09/21 History Nasal [place]] Hydroxychloroquine Sulfate 200 mg PO BID 05/08/19 12/09/21 History [Plaquenil] Primidone [Mysoline] 50 mg PO HS 09/16/21 12/09/21 History Lisinopril-Hctz 20-12.5 mg 1 tab PO BID 12/09/21 12/09/21 History [Zestoretic 20-12.5] Pregabalin [Lyrica] 75 mg PO TID 12/09/21 12/09/21 History metFORMIN HCL [Glucophage] 1,000 mg PO BID 12/09/21 12/09/21 History traZODone HCL 100 mg PO HS PRN 12/09/21 12/09/21 History Allergies Allergy/AdvReac Type Severity Reaction Status Date / Time Phenothiazines Allergy Rash/Hives Verified 12/14/21 07:40 Tetanus Vaccines and Toxoid Allergy Unknown Verified 12/14/21 07:40 codeine AdvReac Confusion Verified 12/14/21 07:40 Physical Exam Osteopathic Statement: *. No significant issues noted on an osteopathic structural exam other than those noted in the History and Physical/Consult. Vitals: Vital Signs Temp Pulse Resp BP Pulse Ox 12/15/21 08:00 98.9 F 69 16 108/54 98 12/15/21 01:05 98.0 F 77 16 141/61 12/14/21 20:33 98.3 F 81 16 138/59 Intake and Output 12/14/21 12/15/21 12/15/21 22:59 06:59 14:59 Output Total 500 1250 180 Balance -500 -1250 -180 Output: Drainage 50 180 Left Chest 10 70 Right Chest 40 110 Urine 500 1200 Other: # Voids 1 Weight 155 kg Results CBC & Chem 7: 12/15/21 11:37 12/14/21 08:12 Labs: Abnormal Lab Results - Last 24 Hours (Table) 12/14/21 12/14/21 12/15/21 Range/Units 16:02 20:20 11:37 RDW 16.0 H (11.5-15.5) % POC Glucose (mg/dL) 139 H 133 H (70-110) mg/dL
--- NOTE | 2021-12-16 08:53 | P.OP ---
Date of Procedure: 12/14/21 Preoperative Diagnosis: Macromastia symptomatic bilateral Postoperative Diagnosis: same Procedure(s) Performed: Bilateral mastectomy with bilateral axillary V-Y advancement flaps Anesthesia: YNES Surgeon: Vivi Huff Pathology: other (Bilateral breast) Condition: stable Disposition: floor Indications for Procedure: Symptomatic bilateral macromastia Operative Findings: Fibrofatty breast, each breast weighed over 7 pounds Description of Procedure: The patient was taken to the operative suite and following induction of anesthesia both breasts and axilla were prepped and draped in a sterile fashion. The left side was approached initially. Using a marking pen the area for incisions was marked. A superior flap was developed as well as an inferior flap. Hemostasis was attained using electrocautery device as well as suture ligating any vessels of concern. The breast was then removed from medial to lateral being careful to maintain hemostasis using the electrocautery device as well as the Harmonic scalpel. 2 AALIYAH drains were placed. The axilla was noted to have redundant tissue and a VY advancement flap was performed to close this area of the axilla. The subcutaneous tissue was closed using 3-0 Vicryl suture, the skin was closed using 4-0 Monocryl. The drains were secured using nylon suture. Ramesh were placed. The right side was approached following removal of the left breast. Using a marking pen the area for incisions was marked. A superior flap was developed as well as an inferior flap. Hemostasis was attained using electrocautery device as well as suture ligating any vessels of concern. The breast was then removed from medial to lateral being careful to maintain hemostasis using the electrocautery device as well as the Harmonic scalpel. 2 AALIYAH drains were placed. The axilla was noted to have redundant tissue and a VY advancement flap was performed to close this area of the axilla. The subcutaneous tissue was closed using 3-0 Vicryl suture, the skin was closed using 4-0 Monocryl. The drains were secured using nylon suture. Sumas were placed. All instrument and sponge counts were correct at the end of the case. The patient tolerated the procedure in stable condition.
== END 2021-12-15 14:20 | disposition home or self-care (01) ==
LOC: OR 07:07 → 4FBP 14:02 → OR 12-15 14:20
PROVIDERS: ATTEND Surgery
DX: D24.1 Benign neoplasm of right breast (principal); D24.2 Benign neoplasm of left breast; I10 Essential (primary) hypertension; E78.5 Hyperlipidemia, unspecified; G47.33 Obstructive sleep apnea (adult) (pediatric); E11.9 Type 2 diabetes mellitus without complications; G89.29 Other chronic pain; E66.01 Morbid (severe) obesity due to excess calories; Z68.41 Body mass index [BMI] 40.0-44.9, adult; Z88.1 Allergy status to other antibiotic agents; Z88.7 Allergy status to serum and vaccine; Z98.41 Cataract extraction status, right eye; Z98.42 Cataract extraction status, left eye; Z98.890 Other specified postprocedural states; Z79.84 Long term (current) use of oral hypoglycemic drugs; Z79.899 Other long term (current) drug therapy
CPT/HCPCS: 19303; 14000; 84132; 85025; J1100; J0690 ×2; J2405; J1644 ×2; 88305; 88307

== ENCOUNTER → 2021-12-23 | Outpatient (CLI) | payer OTHER ==
--- NOTE | 2021-12-23 15:14 | P.PN ---
Progress Note - Text Progress Note Date: 12/23/21 The patient is status post bilateral mastectomy with V-Y advancement flap on 9621. Postoperatively she is doing well. She states that the discomfort in her neck and back has improved since the mastectomies. Physical examination: Incisions clean and dry bilaterally AALIYAH output is serous from all drains minimal output on the left from drain a, and the right drain a Lungs: Clear Heart: Regular rate and rhythm Plan: DC half of the eileen DC bilateral drain A Follow-up one week CC: Dr. Dial
== END ==
LOC: WWCWWP 15:00
PROVIDERS: ATTEND Surgery
DX: Z48.817 Encounter for surgical aftercare following surgery on the skin and subcutaneous tissue (principal); Z90.13 Acquired absence of bilateral breasts and nipples; Z87.891 Personal history of nicotine dependence; Z88.5 Allergy status to narcotic agent; Z88.8 Allergy status to other drugs, medicaments and biological substances; Z88.7 Allergy status to serum and vaccine

== ENCOUNTER → 2021-12-30 | Outpatient (CLI) | payer OTHER ==
[2021-12-30 15:53] VITALS: BP 131/79; RESP 17; TEMP 98.9
--- NOTE | 2021-12-30 16:05 | P.PN ---
Progress Note - Text Progress Note Date: 12/30/21 The patient is status post bilateral mastectomy with V-Y advancement flap on 9621. Postoperatively she is doing well. She states that the discomfort in her neck and back has improved since the mastectomies. Pathology fibrocystic changes bilateral. Physical examination: Incisions clean and dry bilaterally AALIYAH output is serous from all drains; after a less than 40 mL for several days in a row, right drained approximately 100 mL per day serous Lungs: Clear Heart: Regular rate and rhythm Plan: DC eileen remove left drain Follow-up one week CC: Dr. Dial
== END ==
LOC: WWCWWP 15:03
PROVIDERS: ATTEND Surgery
DX: N60.11 Diffuse cystic mastopathy of right breast (principal); N60.12 Diffuse cystic mastopathy of left breast; Z90.13 Acquired absence of bilateral breasts and nipples; Z88.7 Allergy status to serum and vaccine; Z88.5 Allergy status to narcotic agent; Z88.8 Allergy status to other drugs, medicaments and biological substances; Z87.891 Personal history of nicotine dependence

== ENCOUNTER → 2022-01-06 | Outpatient (CLI) | payer OTHER ==
--- NOTE | 2022-01-06 08:29 | P.PN ---
Progress Note - Text Progress Note Date: 01/06/22 The patient is status post bilateral mastectomy with V-Y advancement flap on 9621. Postoperatively she is doing well. No fever or chills. She states that the discomfort in her neck and back has improved since the mastectomies. Pathology fibrocystic changes bilateral. She has discomfort at the right drain site. Physical examination: Incisions clean and dry bilaterally AALIYAH removed from the left side, appears to be a small seroma however attempted aspiration does not reveal significant fluid, right AALIYAH site irritated, output approximately 50 mL per day Midportion of the right mastectomy site with some erythema may be related to fungal infection Lungs: Clear Heart: Regular rate and rhythm Plan: DC eileen remove right AALIYAH drain Prophylactic antibiotics Nystatin Follow-up one week
== END | disposition home or self-care (01) ==
LOC: WWCWWP 08:10
PROVIDERS: ATTEND Surgery
DX: Z53.9 Procedure and treatment not carried out, unspecified reason (principal)

== ENCOUNTER 2022-01-12 14:10 | Emergency (ER) | payer OTHER ==
[2022-01-12 14:44] VITALS: TEMP 98.5
[2022-01-12] MEDS ORDERED: KETOROLAC 15 MG/ML 1 ML VIAL IVP STA (15:30)
[2022-01-12] MEDS ORDERED: ONDANSETRON 4 MG/2 ML VIAL IVP STA (15:37)
--- NOTE | 2022-01-12 15:39 | ED ---
Skin/Abscess/FB HPI - General Chief complaint: Skin/Abscess/Foreign Body Stated complaint: fluid, infection from surgery Time Seen by Provider: 01/12/22 15:17 Source: patient, family, RN notes reviewed Mode of arrival: ambulatory Limitations: no limitations - History of Present Illness Initial comments: This is a 61-year-old female who presents to the emergency department for a possible postoperative infection. On 12/15, she had a double mastectomy with Dr. Huff for symptomatic bilateral macromastia. He had a follow-up appointment on 01/06, and there was concern for a possible developing infection. She was subsequently placed on prophylactic antibiotics. She is unsure what medication this was, however she has since finished this prescription. This is also the day she had the bilateral AAILYAH drains removed. States that since then, she has had increased swelling and what she feels like is fluid buildup underneath the incisions. She had a fever for 3 days in a row, most recently 2 days ago. She had associated nausea with this as well. Denies any fevers, chills, sore throat, cough, dyspnea, palpitations, abdominal pain, vomiting, diarrhea, back pain, or headaches. MD complaint: other (Swelling over mastectomy incisions.) Associated symptoms: fever, nausea - Related Data Home Medications Medication Instructions Recorded Confirmed Atorvastatin [Lipitor] 40 mg PO HS 01/11/18 01/12/22 Furosemide [Lasix] 40 mg PO DAILY PRN 01/11/18 01/12/22 Potassium Chloride ER [K-Dur 10] 10 meq PO HS 01/11/18 01/12/22 DULoxetine HCL [Cymbalta] 60 mg PO BID 05/08/19 01/12/22 Fluticasone Nasal [place] [Flonase 2 spr EA NOSTRIL DAILY 05/08/19 01/12/22 Nasal [place]] Hydroxychloroquine Sulfate 200 mg PO BID 05/08/19 01/12/22 [Plaquenil] Primidone [Mysoline] 50 mg PO HS 09/16/21 01/12/22 Lisinopril-Hctz 20-12.5 mg 1 tab PO BID 12/09/21 01/12/22 [Zestoretic 20-12.5] Pregabalin [Lyrica] 75 mg PO TID 12/09/21 01/12/22 traZODone HCL 100 mg PO HS PRN 12/09/21 01/12/22 Nystatin 100,000Unit/gm Cream 1 applic TOPICAL BID 01/12/22 01/12/22 [Mycostatin Cream] Previous Rx's Medication Instructions Recorded Ketorolac [Toradol] 10 mg PO Q6HR PRN #12 tab 01/12/22 Ondansetron Odt [Zofran Odt] 4 mg PO Q8HR PRN #15 tab 01/12/22 Sulfamethox-Tmp 800-160Mg [Bactrim 1 tab PO Q12HR 7 Days #14 tab 01/12/22 DS 800-160 mg] Allergies Allergy/AdvReac Type Severity Reaction Status Date / Time Phenothiazines Allergy Rash/Hives Verified 01/12/22 16:37 Tetanus Vaccines and Toxoid Allergy Unknown Verified 01/12/22 16:37 codeine AdvReac Confusion Verified 01/12/22 16:37 Review of Systems ROS Statement: Those systems with pertinent positive or pertinent negative responses have been documented in the HPI. ROS Other: All systems not noted in ROS Statement are negative. Past Medical History Past Medical History: COPD, Diabetes Mellitus, Fibromyalgia, Osteoarthritis (OA), Rheumatoid Arthritis (RA), Sleep Apnea/CPAP/BIPAP Additional Past Medical History / Comment(s): Pt states is not hypertensive nor have elevated lipids-she takes Rx for preventative d/t DM. 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 Varicose veins. History of Any Multi-Drug Resistant Organisms: None Reported Past Surgical History: Breast Surgery, Cholecystectomy, Hysterectomy, Joint Replacement, Orthopedic Surgery Additional Past Surgical History / Comment(s): Bilateral varicose vein surgeries, librado ankle and knee arthroscopies. librado knee replacement, librado cataracts Past Anesthesia/Blood Transfusion Reactions: Previous Problems w/ Anesthesia Additional Past Anesthesia/Blood Transfusion Reaction / Comment(s): states has been hard to awake in past Past Psychological History: No Psychological Hx Reported Smoking Status: Former smoker Past Alcohol Use History: None Reported Past Drug Use History: None Reported - Past Family History Mother Family Medical History: Cancer Additional Family Medical History / Comment(s): lung and breast cancer Father Family Medical History: Hypertension Additional Family Medical History / Comment(s): Father had a pacemaker. He age 70yrs - unsure of cause of General Exam Limitations: no limitations General appearance: alert, in no apparent distress Head exam: Present: atraumatic, normocephalic, normal inspection Respiratory exam: Present: normal lung sounds bilaterally. Absent: respiratory distress, wheezes, rales, rhonchi, stridor Cardiovascular Exam: Present: regular rate, normal rhythm, normal heart sounds. Absent: systolic murmur, diastolic murmur, rubs, gallop, clicks Neurological exam: Present: alert, oriented X3, CN II-XII intact Psychiatric exam: Present: normal affect, normal mood Skin exam: Present: other (Well-healing double mastectomy incisions with minor overlying erythema and swelling. No areas of active drainage.) Course Vital Signs 01/12/22 01/12/22 14:41 17:46 Temperature 98.5 F Pulse Rate 76 75 Respiratory 16 18 Rate Blood Pressure 127/56 131/57 O2 Sat by Pulse 100 99 Oximetry Medical Decision Making - Medical Decision Making This is a 61-year-old female who presents to the emergency department for a possible postoperative infection. Lab work was nonactionable. Patient given IV fluids, Zofran, and Toradol, which she states did help with her symptoms. Ultrasound of the chest was obtained for further evaluation of the fluid collection. The ultrasound did not get pushed through, however the x-ray wireless field technician spoke with the radiologist, who did not identify an abscess and states that the swelling is likely due to a fluid collection such as a seroma. I spoke with the patient's surgeon, Dr. Huff, who advised she follow-up with her in the office at 8:30 AM Monday. Prescription for Bactrim provided in the event she has any infectious component. She was also given a prescription for Toradol and Zofran to help with her symptoms. She is instructed to avoid taking [id number] anti-inflammatories such as Ibuprofen with the Toradol. Strict return parameters discussed, in that if she develops any purulent drainage or fevers, she should return to the emergency department. Return precautions reviewed in depth, the patient is instructed to return to the emergency department with any new, worsening, or concerning symptoms. Patient verbalized understanding. This case was discussed in detail with the attending ED physician. Presentation, findings, and treatment plan discussed in detail as well. - Lab Data Result diagrams: 01/12/22 15:45 01/12/22 15:45 Lab Results 01/12/22 01/12/22 01/12/22 Range/Units 15:45 15:45 15:45 WBC 8.8 (3.8-10.6) k/uL RBC 4.21 (3.80-5.40) m/uL Hgb 11.9 (11.4-16.0) gm/dL Hct 35.6 (34.0-46.0) % MCV 84.7 (80.0-100.0) fL MCH 28.2 (25.0-35.0) pg MCHC 33.3 (31.0-37.0) g/dL RDW 14.9 (11.5-15.5) % Plt Count 171 (150-450) k/uL MPV 9.2 Neutrophils % 70 % Lymphocytes % 18 % Monocytes % 7 % Eosinophils % 3 % Basophils % 1 % Neutrophils # 6.2 (1.3-7.7) k/uL Lymphocytes # 1.6 (1.0-4.8) k/uL Monocytes # 0.6 (0-1.0) k/uL Eosinophils # 0.3 (0-0.7) k/uL Basophils # 0.1 (0-0.2) k/uL Hypochromasia Slight Sodium 133 L (137-145) mmol/L Potassium 4.3 (3.5-5.1) mmol/L Chloride 93 L (98-107) mmol/L Carbon Dioxide 30 (22-30) mmol/L Anion Gap 10 mmol/L BUN 18 H (7-17) mg/dL Creatinine 0.74 (0.52-1.04) mg/dL Est GFR (CKD-EPI)AfAm >90 (>60 ml/min/1.73 sqM) Est GFR (CKD-EPI)NonAf 87 (>60 ml/min/1.73 sqM) Glucose 107 H (74-99) mg/dL Plasma Lactic Acid Richard 1.4 (0.7-2.0) mmol/L Calcium 9.0 (8.4-10.2) mg/dL Total Bilirubin 0.7 (0.2-1.3) mg/dL AST 37 H (14-36) U/L ALT 32 (4-34) U/L Alkaline Phosphatase 103 (38-126) U/L Total Protein 6.3 (6.3-8.2) g/dL Albumin 3.9 (3.5-5.0) g/dL - Radiology Data Radiology results: report reviewed, image reviewed Disposition Clinical Impression: Postoperative seroma Disposition: HOME SELF-CARE Instructions (If sedation given, give patient instructions): Seroma (DC) Additional Instructions: Return to the emergency department with any new, worsening, or concerning symptoms. Take the antibiotic as prescribed for 7 days. The Zofran can be taken up to every 8 hours for nausea and vomiting. The Toradol to be taken up to every 6 hours as needed for pain. Do not take the Toradol with ibuprofen or other qihd-rkx-twlbaew anti-inflammatories. Follow up with Dr. Huff at 8:30 AM on Monday (01/17) for drainage of the fluid collection. Prescriptions: Sulfamethox-Tmp 800-160Mg [Bactrim DS 800-160 mg] 1 tab PO Q12HR 7 Days #14 tab Ketorolac [Toradol] 10 mg PO Q6HR PRN #12 tab PRN Reason: Pain Ondansetron Odt [Zofran Odt] 4 mg PO Q8HR PRN #15 tab PRN Reason: Nausea And Vomiting Is patient prescribed a controlled substance at d/c from ED?: No Referrals: Vivi Huff MD [Primary Care Provider] - 1-2 days
[2022-01-12 16:00] LABS: Basophils # (A) 0.1 k/uL (0-0.2); Basophils % (A) 1 %; Eosinophils # (A) 0.3 k/uL (0-0.7); Eosinophils % (A) 3 %; HCT 35.6 % (34.0-46.0); HGB 11.9 gm/dL (11.4-16.0); Hypochromasia Slight; Lymphocytes # (A) 1.6 k/uL (1.0-4.8); Lymphocytes % (A) 18 %; MCH 28.2 pg (25.0-35.0); MCHC 33.3 g/dL (31.0-37.0); MCV 84.7 fL (80.0-100.0); Mean Platelet Volume 9.2; Monocytes # (A) 0.6 k/uL (0-1.0); Monocytes % (A) 7 %; Neutrophils # (A) 6.2 k/uL (1.3-7.7); Neutrophils % (A) 70 %; Platelet Count 171 k/uL (150-450); RBC 4.21 m/uL (3.80-5.40); RDW 14.9 % (11.5-15.5); WBC 8.8 k/uL (3.8-10.6)
[2022-01-12 16:11] LABS: ALT 32 U/L (4-34); AST 37 U/L (14-36); African American GFR (CKD) >90 (>60 ml/min/1.73 sqM); Albumin 3.9 g/dL (3.5-5.0); Alkaline Phosphatase 103 U/L (38-126); Anion Gap 10 mmol/L; Blood Urea Nitrogen 18 mg/dL (7-17); Carbon Dioxide 30 mmol/L (22-30); Chloride 93 mmol/L (98-107); Glucose 107 mg/dL (74-99); Non-African American GFR(CKD) 87 (>60 ml/min/1.73 sqM); Potassium 4.3 mmol/L (3.5-5.1); Sodium 133 mmol/L (137-145); Total Bilirubin 0.7 mg/dL (0.2-1.3); Total Protein 6.3 g/dL (6.3-8.2)
[2022-01-12 17:47] VITALS: RESP 18
[2022-01-12 19:57] VITALS: BP 128/71; PULSE 70
--- NOTE | 2022-01-13 10:12 | USB ---
Reason for Exam: Clinical finding. Patient History: 12/14/2021, Mastectomy on the Left side. 12/14/2021, Mastectomy on the Right side. 08/18/2021, Benign US biopsy breast VAD LT on the left side. Risk Values: Torie 5 year model risk: 1.2%. NCI Lifetime model risk: 5.2%. Technique: Method: Targeted. Prior Study Comparison: 08/18/2021 Left MG diagnostic mammo LT wo CAD., PH. Findings: Swelling at mastectomy site. Bilateral mastectomy x 1 month ago with redness. Patient states she is feeling fluid. Drains removed x 6 days ago. Right breast mastectomy site/scar scanned. Fluid visualized along the length of scar with more fluid seen laterally. IMPRESSION: There is a large fluid collection predominantly anechoic appearance and with some posterior acoustic enhancement in the subcutaneous tissues. Findings may be related to seroma and/or hematoma given recent surgery. Infection is felt to be less likely secondary to lack of peripheral color Doppler flow. Electronically signed and approved by: Antonino Musa DO
== END 2022-01-12 19:57 | disposition home or self-care (01) ==
LOC: EC 14:10
DX: K91.872 Postprocedural seroma of a digestive system organ or structure following a digestive system procedure (principal); J44.9 Chronic obstructive pulmonary disease, unspecified; E11.9 Type 2 diabetes mellitus without complications; Z87.891 Personal history of nicotine dependence; Z99.89 Dependence on other enabling machines and devices; Z88.7 Allergy status to serum and vaccine; Z88.5 Allergy status to narcotic agent
CPT/HCPCS: 36415; 80053; 83605; 85025; 76642; 99283; 96374; 96375; J2405; J1885

== ENCOUNTER → 2022-01-17 | Outpatient (CLI) | payer OTHER ==
--- NOTE | 2022-01-17 09:12 | P.PN ---
Progress Note - Text Progress Note Date: 01/17/22 The patient is status post bilateral mastectomy with V-Y advancement flap on 9621. Postoperatively she has done well. No fever or chills. She states that the discomfort in her neck and back has improved since the mastectomies. Pathology fibrocystic changes bilateral. The patient was seen in the emergency department on and it was felt that she had a seroma at that time. She presents today for evaluation of the possible seroma. Her white count at that time was 8.8. She was given a prescription for Bactrim. She states that she feels fluid under the incision sites on both sides. Physical examination: Incisions clean and dry bilaterally; bilateral seromas; in the medial aspect of the right breast incision there is some slight necrosis of the incision no evidence of any infection At the trifurcation of the VY plasty on the left there is some slight necrosis no evidence of infection Lungs: Clear Heart: Regular rate and rhythm Plan: Aspiration seromas Aspiration seromas, after informed consent the right chest wall was prepped using alcohol. An 18-gauge needle and a 60 mL syringe was inserted into the area of fluctuance. Approximately 540 mL of serous fluid was removed. The left side was then approached. The area was prepped using alcohol. An 18-gauge need le on a 60 mL syringe was inserted into the area of fluctuance. A proximally 5 her cc of serous fluid was removed. The patient tolerated the procedure in stable condition. Follow-up in 1 week for possible re-aspiration of seroma.
[2022-01-17 09:30] VITALS: BP 145/69; PULSE 88; RESP 18; TEMP 98.3
== END | disposition home or self-care (01) ==
LOC: WWCWWP 08:26
PROVIDERS: ATTEND Surgery
DX: Z53.9 Procedure and treatment not carried out, unspecified reason (principal)

== ENCOUNTER → 2022-01-27 | Outpatient (CLI) | payer OTHER ==
[2022-01-27 09:32] VITALS: BP 171/73; PULSE 93; RESP 18; TEMP 98.1
--- NOTE | 2022-01-27 09:44 | P.PN ---
Progress Note - Text Progress Note Date: 01/27/22 The patient is status post bilateral mastectomy with V-Y advancement flap on 9621. Postoperatively she has done well. No fever or chills. She states that the discomfort in her neck and back has improved since the mastectomies. Pathology fibrocystic changes bilateral. The patient recently noticed some drainage from the medial aspect of the right incision. And she comes in for evaluation. There is approximately a 8 mm area of opening with some serous drainage. It is felt that she had a seroma which spontaneously drained. The area was reinforced with nylon suture. And packed. The patient is tied a pack the area. Physical examination: Incision clean and dry bilaterally In the right breast there is approximately a 8 mm area of opening. Drainage has occurred. In the left chest wall a possible very small seroma nothing for aspiration today. Lungs: Clear Heart: Regular rate and rhythm Plan: Reinforcement of the area of opening in the right incision Right incision packed Patient will follow up in approximately 1 week, patient to follow up sooner if any questions or concerns. I will be gone next week and Dr. Sanchez is covering me. The patient is aware
== END ==
LOC: WWCWWP 09:18
PROVIDERS: ATTEND Surgery
DX: N60.11 Diffuse cystic mastopathy of right breast (principal); N60.12 Diffuse cystic mastopathy of left breast; Z90.13 Acquired absence of bilateral breasts and nipples; Z88.5 Allergy status to narcotic agent; Z88.7 Allergy status to serum and vaccine; Z87.891 Personal history of nicotine dependence; Z88.8 Allergy status to other drugs, medicaments and biological substances

== ENCOUNTER → 2022-02-10 | Outpatient (CLI) | payer OTHER ==
[2022-02-10 14:06] VITALS: BP 122/77; PULSE 107; RESP 18; TEMP 98.9
--- NOTE | 2022-02-10 14:30 | P.PN ---
Progress Note - Text Progress Note Date: 02/10/22 The patient is status post bilateral mastectomy with V-Y advancement flap on 9621. Postoperatively she has done well. No fever or chills. She states that the discomfort in her neck and back has improved since the mastectomies. Pathology fibrocystic changes bilateral. The patient recently noticed some drainage from the medial aspect of the right incision which has since resolved. There was approximately an 8 mm area of opening with some serous drainage it has closed. It is felt that she had a seroma which spontaneously drained. Physical examination: Incision clean and dry bilaterally In the right breast is a scab where the opening had previously been the areas completely closed; a plan for aspiration on today's examination In the left chest wall a possible very small seroma nothing for aspiration today. Lungs: Clear Heart: Regular rate and rhythm Plan: follow up in 6 months or sooner if any questions CC: Dr. Dial
== END | disposition home or self-care (01) ==
LOC: WWCWWP 13:25
PROVIDERS: ATTEND Surgery
DX: Z53.9 Procedure and treatment not carried out, unspecified reason (principal)

== ENCOUNTER → 2022-03-08 | Outpatient (CLI) | payer OTHER ==
--- NOTE | 2022-03-08 16:18 | P.PN ---
Progress Note - Text Progress Note Date: 03/08/22 The patient is status post bilateral mastectomy with V-Y advancement flap on 9621. Postoperatively she has done well. No fever or chills. She states that the discomfort in her neck and back has improved since the mastectomies. Pathology fibrocystic changes bilateral. The patient recently noticed some drainage from the medial aspect of the right incision which has since resolved. There was approximately an 8 mm area of opening with some serous drainage it has closed, there is a scab at this site. It is felt that she had a seroma which spontaneously drained. Physical examination: Incision clean and dry bilaterally In the right breast is a scab where the opening had previously been the areas completely closed; there is nothing to aspirate at this time In the left chest wall a possible very small seroma nothing for aspiration today. Plan: follow up in 6 months or sooner if any questions
== END ==
LOC: WWCWWP 12:04
PROVIDERS: ATTEND Surgery
DX: Z90.13 Acquired absence of bilateral breasts and nipples (principal); Z88.7 Allergy status to serum and vaccine; Z88.5 Allergy status to narcotic agent; Z88.8 Allergy status to other drugs, medicaments and biological substances; Z87.891 Personal history of nicotine dependence

== ENCOUNTER → 2023-08-25 | Outpatient (CLI) | payer MEDICARE, OTHER ==
--- NOTE | 2023-08-25 14:33 | P.PN ---
Subjective Progress Note Date: 08/25/23 Principal diagnosis: bilateral mastectomies bilateral macromastia symptomatic Brandon is a 62 year old white female seen in consultation for Dr. Dial regarding an abnormal bilateral mammogram from 07-13-21. This was a routine mammogram. The patient did not feel any lumps masses or nodules of concern in either breast. The mammogram revealed in the right breast a grouping of calcifications in the upper outer quadrant 14 cm from the nipple which demonstrated varying characteristics. Stereotactic core biopsy was recommended. Additionally a 3 mm nodule in the periareolar region was identified and an ultrasound was recommended. The left breast demonstrated a 4 mm nodule in the periareolar region at approximately the 3:00 location for which ultrasound was also recommended. No calcifications of concern were noted in the left breast. She has not had a recen t ultrasound done at this time. She was not complaining of any nipple discharge or skin changes. She had not had any breast biopsies or surgery on her breast. She had not had an any recent infection or trauma to her breast. The patients weight prohibited her from a stero biopsy at [facility] and a procedure done on [facility] on 08-20-21; this was benign concordant. She had a left breast ultrasound core biopsy on 08-18-21 which was also benign concordant. The patient has chronic back pain related to macromastia. Additionally she has fungal infections under each breast for greater than a year despite multiple courses of treatment which did not heal secondary to the large size of the breast. The patient also has cervical pain related most likely to the macromastia she has had treated but without resolution. Patient had a bilateral mastectomy on 12-14-21. At this time she is doing well. The incisions are completely healed, has no complaints. She has no complaints related to her chest wall. Caffeine: 2 kurig pods/day nicotine: none, stopped 20 years ago, used to smoke from 11 to 38 1 1/2 PPD chocolate: occasional BCP: none hormones: none; hysterectomy at 28, done for fibroid tumors; took both ovaries Family History: mother: breast and lung cancer niece: ovarian cancer Hormonal History: menarche: 11 G0 menopause: surgical at 28 hormones: none BCP: none Surgical History: Hysterectomy with bilateral oophrectomy bilateral knees vein stripping bilateral scopes on both ankles for arthritis appy gallbaldder carpel tunnel bilateral mastectomies Medical History: Type 2 diabetes ( on lantis and ozempia) Renal insufficiency/acute Osteoarthritis Fibromyalgia Polyarthralgia Lupus Hypertension Hyperlipidemia Social History: Nicotine: Negative stopped 20 years ago used to smoke from the age of [age]; 11/2 packs per day Alcohol: occasional drugs:none - Constitutional Constitutional: Denies chills, Denies fever - EENT Eyes: denies blurred vision, denies pain Ears: deny: decreased hearing, tinnitus Ears, nose, mouth and throat: Denies headache, Denies sore throat - Breasts Breasts: bilateral: as per HPI - Cardiovascular Cardiovascular: Denies chest pain, Denies shortness of breath - Respiratory Respiratory: Denies cough - Gastrointestinal Gastrointestinal: Denies abdominal pain, Denies diarrhea, Denies nausea, Denies vomiting - Genitourinary (Female) Genitourinary: Denies dysuria, Denies hematuria - Menstruation Menstruation: Reports post hysterectomy - Musculoskeletal Musculoskeletal: Reports as per HPI, Reports myalgias - Integumentary Integumentary: Denies pruritus, Denies rash - Neurological Neurological: Denies numbness, Denies weakness - Endocrine Comment: lost 75 pounds on purpose Endocrine: Reports weight change, Denies fatigue - Hematologic/Lymphatic Comment: varicose veins close to the surface of the skin - Allergic/Immunologic Allergic/Immunologic: Reports as per HPI Past Medical History Past Medical History: Heart Failure, Diabetes Mellitus, Fibromyalgia, Osteoarthritis (OA), Rheumatoid Arthritis (RA), Sleep Apnea/CPAP/BIPAP Additional Past Medical History / Comment(s): Pt states is not hypertensive nor have elevated lipids-she takes Rx for preventative d/t DM. 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 No tx for sleep apnea. Varicose veins. History of Any Multi-Drug Resistant Organisms: None Reported Past Surgical History: Cholecystectomy, Hysterectomy, Joint Replacement, Orthopedic Surgery Additional Past Surgical History / Comment(s): Bilateral varicose vein surgeries , LR ankle and knee arthroscopies. Total Lt Knee 05/15/19 Past Anesthesia/Blood Transfusion Reactions: Previous Problems w/ Anesthesia Additional Past Anesthesia/Blood Transfusion Reaction / Comment(s): states has been hard to awake in past Past Psychological History: No Psychological Hx Reported Additional Psychological History / Comment(s): Pt has her mother residing with her. 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 She is independent. Smoking Status: Former smoker Past Alcohol Use History: Occasional Additional Past Alcohol Use History / Comment(s): Pt started smoking in 1974, quit about 1999. Past Drug Use History: None Reported - Past Family History Mother Family Medical History: Cancer, COPD Additional Family Medical History / Comment(s): Mother had lung cancer stage IV Father Family Medical History: CVA/TIA, Hypertension Additional Family Medical History / Comment(s): Father had a pacemaker. He age 70yrs - unsure of cause of Medications and Allergies Home Medications Medication Instructions Recorded Confirmed Type Atorvastatin [Lipitor] 40 mg PO HS 01/11/18 07/30/21 History Furosemide [Lasix] 40 mg PO DAILY PRN 01/11/18 07/30/21 History Potassium Chloride ER [K-Dur 10] 10 meq PO HS 01/11/18 07/30/21 History metFORMIN HCL [metFORMIN HCL ER] 500 mg PO BID 01/11/18 07/30/21 History DULoxetine HCL [Cymbalta] 60 mg PO BID 05/08/19 07/30/21 History Diclofenac Sodium [Voltaren Gel] 1 applic TOPICAL DAILY PRN 05/08/19 07/30/21 History Fluticasone Nasal [place] [Flonase 2 spr EA NOSTRIL DAILY 05/08/19 07/30/21 History Nasal [place]] Folic Acid 1 mg PO DAILY 05/08/19 07/30/21 History Hydroxychloroquine Sulfate 200 mg PO BID 05/08/19 07/30/21 History [Plaquenil] Acetaminophen Tab [Tylenol] 650 mg PO Q6H PRN 09/20/19 07/30/21 History traZODone HCL 150 mg PO HS PRN 09/20/19 07/30/21 History Sennosides [Senokot] 2 tab PO DAILY PRN #60 tablet 09/25/19 07/30/21 Rx lisinopriL [Zestril] 10 mg PO DAILY #30 tab 09/25/19 07/30/21 Rx Allergies Allergy/AdvReac Type Severity Reaction Status Date / Time Phenothiazines Allergy Rash/Hives Verified 07/30/21 12:48 Tetanus Vaccines and Toxoid Allergy Unknown Verified 07/30/21 12:48 codeine AdvReac Confusion Verified 07/30/21 12:48 Objective - Vital Signs Vital signs: Intake & Output 08/24/23 08/25/23 08/25/23 18:59 06:59 18:59 Weight 158.304 kg - Constitutional General appearance: Present: cooperative - EENT Eyes: Present: EOMI ENT: Present: hearing grossly normal - Neck Neck: Present: normal ROM - Respiratory Respiratory: bilateral: CTA - Cardiovascular Rhythm: regular Heart sounds: normal: S1, S2 - Gastrointestinal General gastrointestinal: Present: soft - Integumentary Integumentary: Present: normal turgor - Musculoskeletal Musculoskeletal: Present: gait normal - Psychiatric Psychiatric: Present: A&O x's 3, appropriate affect, intact judgment & insight - Additional findings Additional findings: Breast Exam: Inspection: Bilateral well-healed incisions chest wall Palpation: Right chest wall: Incision clean and dry no evidence of any tumor Right axilla: No adenopathy of concern Left chest wall: Incision clean and dry no evidence of any tumor Left axilla: No adenopathy of concern Assessment and Plan Assessment: Impression: Macromastia symptomatic/ status post bilateral mastectomies Fibrocystic breast changes Type 2 diabetes Renal insufficiency/acute Osteoarthritis Fibromyalgia Polyarthralgia Lupus Hypertension Hyperlipidemi Plan: Follow up in 1 year, follow up sooner any questions or concerns CC: DR. Dial
[2023-08-25 15:17] VITALS: BP 134/82; PULSE 84; RESP 17; TEMP 98
== END ==
LOC: WWCWWP 13:23
PROVIDERS: ATTEND Surgery
DX: R92.1 Mammographic calcification found on diagnostic imaging of breast (principal); N62 Hypertrophy of breast; N60.11 Diffuse cystic mastopathy of right breast; N60.12 Diffuse cystic mastopathy of left breast; E11.40 Type 2 diabetes mellitus with diabetic neuropathy, unspecified; E78.5 Hyperlipidemia, unspecified; I11.0 Hypertensive heart disease with heart failure; I50.9 Heart failure, unspecified; G89.29 Other chronic pain; N28.9 Disorder of kidney and ureter, unspecified; M32.9 Systemic lupus erythematosus, unspecified; M79.7 Fibromyalgia; N63.25 Unspecified lump in the left breast, overlapping quadrants; B49 Unspecified mycosis; M54.9 Dorsalgia, unspecified; M54.2 Cervicalgia; Z87.891 Personal history of nicotine dependence; Z90.13 Acquired absence of bilateral breasts and nipples; Z88.5 Allergy status to narcotic agent; Z88.7 Allergy status to serum and vaccine; Z88.8 Allergy status to other drugs, medicaments and biological substances; Z79.899 Other long term (current) drug therapy; Z79.84 Long term (current) use of oral hypoglycemic drugs; Z79.85 Long-term (current) use of injectable non-insulin antidiabetic drugs; Z79.4 Long term (current) use of insulin; Z80.3 Family history of malignant neoplasm of breast